=== PATIENT | female | born 1955 | race Caucasian/White ===

== ENCOUNTER 2016-05-18 16:40 | Inpatient (IN) | payer OTHER ==
[~2016-05-18] VITALS: Ht 149.9 cm; Wt 65.3 kg
[2016-05-18] MEDS ORDERED: SOD CHLORIDE 0.9% 1,000 ML IV STA (17:07)
[2016-05-18] MEDS ORDERED: ONDANSETRON 4 MG INJ IV STA (17:07)
[2016-05-18] MEDS ORDERED: morphine 4 MG/ML VIAL IV STA (17:07)
[2016-05-18] MEDS ORDERED: NORT10CA2 PO (17:45)
[2016-05-18] MEDS ORDERED: ASPI81TA3 PO (17:45)
[2016-05-18] MEDS ORDERED: CARV6.2579 PO (17:48)
[2016-05-18] MEDS ORDERED: ERGO2000 PO (17:49)
[2016-05-18] MEDS ORDERED: CLOP75TA27 PO (17:49)
[2016-05-18] MEDS ORDERED: SENN-53 PO (17:50)
[2016-05-18] MEDS ORDERED: DOCU-159 PO (17:50)
[2016-05-18] MEDS ORDERED: CYAN500T46 PO (17:50)
[2016-05-18] MEDS ORDERED: FURO20TA3 PO (17:51)
[2016-05-18] MEDS ORDERED: FER325 PO (17:51)
[2016-05-18] MEDS ORDERED: GABA-528 PO ×2 (17:51→17:52)
[2016-05-18] MEDS ORDERED: LOSA25TA5 PO (17:52)
[2016-05-18] MEDS ORDERED: PANT40TA4 PO (17:52)
[2016-05-18 18:51] LABS: BASOPHILS % 0.3 % (0.0-2.0); EOSINOPHILS # 0.3 10^3/ul (0.0-0.5); EOSINOPHILS % 8.9 % (0.0-7.0); HEMATOCRIT 24.6 % (37.0-47.0); HEMOGLOBIN 8.5 g/dl (12.0-16.0); LYMPHOCYTES # 0.8 10^3/ul (0.8-2.9); LYMPHOCYTES % 22.5 % (15.0-51.0); MEAN CORPUSCULAR HEMOGLOBIN 31.6 pg (29.0-33.0); MEAN CORPUSCULAR HGB CONC 34.6 g/dl (32.0-37.0); MEAN CORPUSCULAR VOLUME 91.4 fl (82.0-101.0); MEAN PLATELET VOLUME 9.4 fl (7.4-10.4); MONOCYTE # 0.4 10^3/ul (0.3-0.9); MONOCYTES % 11.2 % (0.0-11.0); NEUTROPHIL # 1.9 10^3/ul (1.6-7.5); NEUTROPHILS % 57.1 % (39.0-77.0); PLATELET COUNT 189 10^3/UL (140-440); RED BLOOD COUNT 2.69 10^6/ul (4.20-5.40); UNCORRECTED WBC 3.4 10^3/ul (4.8-10.8); WHITE BLOOD COUNT 3.4 10^3/ul (4.8-10.8)
[2016-05-18 18:52] LABS: CONDITION 1; LH ANALYZER COMMENTS 1
[2016-05-18 19:08] LABS: ALBUMIN 3.4 g/dl (3.3-4.9); CHLORIDE 106 mmol/L (97-110)
[2016-05-18 19:09] LABS: POTASSIUM 4.2 mmol/L (3.5-5.1); SODIUM 142 mmol/L (135-144)
[2016-05-18 19:11] LABS: ALANINE AMINOTRANSFERASE 18 IU/L (13-69); ALBUMIN/GLOBULIN RATIO 0.94; ALKALINE PHOSPHATASE 56 IU/L (42-121); ANION GAP 18 (8-16); ASPARTATE AMINO TRANSFERASE 16 IU/L (15-46); BLOOD UREA NITROGEN 24 mg/dl (7-20); CARBON DIOXIDE 22 mmol/L (21-31); CREATININE 0.91 mg/dl (0.44-1.00)
[2016-05-18 19:12] LABS: CALCIUM 8.3 mg/dl (8.4-10.2); GLUCOSE 114 mg/dl (70-220)
[2016-05-18 19:27] LABS: TROPONIN-I < 0.012 ng/ml (0.00-0.12)
[2016-05-18] MEDS ORDERED: SOD CHLORIDE 0.9% 1,000 ML IV ONE (20:30)
[2016-05-18 20:42] LABS: ADD UMIC YES; URINE BILIRUBIN (Dip) NEGATIVE (NEGATIVE); URINE BLOOD (Dip) NEGATIVE (NEGATIVE); URINE COLOR LT. YELLOW (YELLOW); URINE GLUCOSE (Dip) NEGATIVE (NEGATIVE); URINE KETONES (Dip) NEGATIVE (NEGATIVE); URINE LEUKOCYTE ESTERASE (Dip) 1+ (NEGATIVE); URINE NITRITE (Dip) NEGATIVE (NEGATIVE); URINE TOTAL PROTEIN (Dip) NEGATIVE (NEGATIVE); URINE UROBILINOGEN (Dip) 0.2 E.U./dL (0.1-1.0)
[2016-05-18 20:50] LABS: BACTERIA,URINE FEW; SQUAMOUS EPITHELIAL CELL,UR MODERATE; URINE RBCS NONE SEEN /HPF (0)
--- NOTE | 2016-05-18 21:43 | RADRPT ---
AMENDMENT: 05/18/2016 9:50:07 PM Melchor Giang M.D. Please disregard the initial report. It is of this date. This is the actual report. Procedure: CT abdomen pelvis without contrast. Clinical indication: Left-sided abdominal pain. Technique: CT of the abdomen pelvis without contrast was performed and is reconstructed 2.5 mm cont iguous axial intervals from the dome of the diaphragm to the inferior pubic rami. The patient was s canned without intravenous or oral contrast. Sagittal and coronal reformatted images were obtained. Calculated radiation dose measures 7[address] D I measures 14 mCi. Comparison: None. Findings: Lung bases are clear of any infiltrate or mass. There is no effusion. The liver, spleen and pancreas are unremarkable. There are gallstones. No adrenal mass is visualiz ed. Kidneys are of normal size and contour. No hydronephrosis, calculus or masses seen. Ureters a re of normal course and caliber with no stone. No bladder masses stone is present. The uterus has been removed. There is no adnexal mass. Calcification is seen in the aorta and iliac arteries with no aneurysm. No adenopathy is present. No bowel mass is visualized. There is a long segment of m oderately distended mid and distal small bowel extending to the ileocecal valve. There is fecalizat ion of this segment of small bowel. The ileocecal valve appears to be widely patent. The appendix is normal. No phlegmon, ascites or pneumoperitoneum is present. The osseous structures are intact. Impression: Long segment moderately distended small bowel with a widely patent ileocecal valve. No evidence of urolithiasis, obstructive uropathy, appendicitis or diverticulitis. Cholelithiasis. Post hysterectomy. PROCEDURE: CT abdomen and pelvis without contrast. CLINICAL INDICATION: Left-sided abdominal pain TECHNIQUE: CT scan of the abdomen and pelvis without contrast was performed and is reconstructed a t 2.5 mm contiguous axial intervals from the dome of the diaphragm to the inferior pubic rami.. The patient was scanned without intravenous contrast. Sagittal and coronal reformatted images were obt ained from the axial source images. The calculated radiation dose measures 753 mGy centimeters. The CTDI measures 14 mGy. COMPARISON: Pain, contour placed in the bowel through 1 of the chest and the other in the is on th e is a moderate FINDINGS: The lung bases are clear of any infiltrate or nodule. No effusion is seen. The liver is of normal size, contour and attenuation with no mass or ductal dilatation. No gallston es are visualized. No splenic, adrenal or pancreatic abnormalities present. Kidneys are of normal size and contour. No hydronephrosis, calculus or masses seen. Ureters are o f normal course and caliber with no stone. No bladder mass or stone is present. There is no aneurysm. No adenopathy is present. No bowel mass or obstruction is present. The appendix is normal. No phlegmon, ascites or pneumop eritoneum is visualized. The osseous structures are intact. IMPRESSION: No evidence of urolithiasis, obstructive uropathy, diverticulitis or appendicitis. .Melchor Giang MD, MD Date Time Electronically viewed and signed by .Melchor Giang MD, on 05/18/2016 21:50 .A/
--- NOTE | 2016-05-18 23:23 | ERA ---
ER Documentation Chief Complaint Date/Time DATE: 05/18/16 TIME: 23:17 Chief Complaint RECTAL BLEEDING AND DIARRHEA FOR 3 -4 DAYS. GEN WEAKNESS AND FATIGUE. HPI This 60 yeal old female presents for nausea diarrhea for 3 times days as well as rectal bleeding. States that she is very weak and feels very tired. Denies any chest pain or shortness of breath. Denies any fevers and chills. States that she has had very low hemoglobin before according transfusion. Stated that her physicians and wanted to do a colonoscopy and EGD but had postponed it because she was still on blood thinners from stent placement 6 months ago. ROS All systems reviewed and are negative except as per history of present illness. Medications Home Meds Reported Medications Pantoprazole* (Pantoprazole*) 40 Mg Tablet.dr, 40 MG PO BID, TAB 05/18/16 Losartan Potassium* (Losartan Potassium*) 25 Mg Tablet, 25 MG PO DAILY, TAB 05/18/16 Gabapentin* (Gabapentin*) 800 Mg Tablet, 800 MG PO TID, #90 TAB 05/18/16 Furosemide* (Furosemide*) 20 Mg Tablet, 20 MG PO DAILY, #60 TAB 05/18/16 Ferrous Sulfate* (Ferrous Sulfate*) 325 Mg Tabec, 325 MG PO TID, TAB 05/18/16 Sennosides* (Senna Lax*) 8.6 Mg Tablet, 1 TAB PO BID, TAB 05/18/16 Docusate Sodium* (Docusate Sodium*) 100 Mg Capsule, 100 MG PO BID, #60 CAP 05/18/16 Cyanocobalamin* (Vitamin B12*) 500 Mcg Tab, 500 MCG PO DAILY, TAB 05/18/16 Clopidogrel Bisulfate (Clopidogrel) 75 Mg Tablet, 75 MG PO DAILY, #30 TAB 05/18/16 Ergocalciferol (Vitamin D2) (VITAMIN D2) 2,000 Unit Tablet, 2000 UNIT PO DAILY, TAB 05/18/16 Carvedilol* (Carvedilol*) 6.25 Mg Tablet, 6.25 MG PO BID, #60 TAB 05/18/16 Nortriptyline Hcl* (Nortriptyline Hcl*) 10 Mg Capsule, 10 MG PO HS, CAP 05/18/16 Aspirin* (Aspirin* Chew) 81 Mg Tab.chew, 81 MG PO DAILY, TAB.CHEW 05/18/16 Discontinued Reported Medications Gabapentin* (Gabapentin*) 800 Mg Tablet, 800 MG PO TID, #90 TAB 05/18/16 Allergies Allergies: Coded Allergies: Sulfa (Sulfonamide Antibiotics) (Verified Allergy, Unknown, SWELLING CAN' T BREATH, 05/18/16) PMhx/Soc History of Surgery: No Anesthesia Reaction: No Hx Neurological Disorder: No Hx Respiratory Disorders: No Hx Cardiac Disorders: Yes (IA W/ STENT, HTN) Hx Psychiatric Problems: No Hx Miscellaneous Medical Probl: Yes (DM, C-DIFF) Hx Alcohol Use: No Hx Substance Use: No Hx Tobacco Use: No Smoking Status: Never smoker Physical Exam Vitals Vital Signs Date Time Temp Pulse Resp B/P Pulse Ox O2 Delivery O2 Flow Rate FiO2 05/18/16 16:50 99.2 79 20 148/72 98 Physical Exam Const: [] Appears ill Head: Atraumatic Eyes: Normal Conjunctiva ENT: Normal External Ears, Nose and Mouth. Neck: Full range of motion..~ No meningismus. Resp: Clear to auscultation bilaterally Cardio: Regular tachycardia, no murmurs Abd: Soft, tender swollen left side of abdomen with no guarding or rebound,, non distended. Normal bowel sounds Skin: No petechiae or rashes Back: No midline or flank tenderness Ext: No cyanosis, or edema Neur: Awake and alert and oriented 3, no focal deficits Psych: Normal Mood and Affect Result Diagram: 05/18/16182905/18/161829 Results 24 hrs Laboratory Tests Test 05/18/16 18:30 05/18/16 20:15 Alanine Aminotransferase (ALT/SGPT) 18IU/L Albumin 3.4g/dl Albumin/Globulin Ratio 0.94 Alkaline Phosphatase 56IU/L Anion Gap 18 Aspartate Amino Transf (AST/SGOT) 16IU/L Basophils # 0.010^3/ul Basophils % 0.3% Blood Morphology Comment Blood Urea Nitrogen 24mg/dl Calcium Level 8.3mg/dl Carbon Dioxide Level 22mmol/L Chloride Level 106mmol/L Creatinine 0.91mg/dl Direct Bilirubin 0.00mg/dl Eosinophils # 0.310^3/ul Eosinophils % 8.9% Globulin 3.60g/dl Glucose Level 114mg/dl Hematocrit 24.6% Hemoglobin 8.5g/dl Indirect Bilirubin 0.0mg/dl Lactic Acid Level 1.7mmol/L Lipase 128U/L Lymphocytes # 0.810^3/ul Lymphocytes % 22.5% Mean Corpuscular Hemoglobin 31.6pg Mean Corpuscular Hemoglobin Concent 34.6g/dl Mean Corpuscular Volume 91.4fl Mean Platelet Volume 9.4fl Monocytes # 0.410^3/ul Monocytes % 11.2% Neutrophils # 1.910^3/ul Neutrophils % 57.1% Nucleated Red Blood Cells # 0.010^3/ul Nucleated Red Blood Cells % 0.0/100WBC Platelet Count 17502^3/UL Potassium Level 4.2mmol/L Red Blood Count 2.6910^6/ul Red Cell Distribution Width 15.0% Sodium Level 142mmol/L Total Bilirubin 0.0mg/dl Total Protein 7.0g/dl Troponin I < 0.012ng/ml White Blood Count 3.410^3/ul Urine Bacteria FEW Urine Bilirubin NEGATIVE Urine Clarity CLEAR Urine Color LT. YELLOW Urine Glucose NEGATIVE% Urine Hemoglobin NEGATIVE Urine Ketones NEGATIVE Urine Leukocyte Esterase 1+ Urine Microscopic RBC NONE SEEN/HPF Urine Microscopic WBC 5-10/HPF Urine Nitrite NEGATIVE Urine Specific Luke 1.010 Urine Squamous Epithelial Cells MODERATE Urine Total Protein NEGATIVE Urine Urobilinogen 0.2 E.U./dL Urine pH 5.5 Current Medications Medications (Trade) Dose Ordered Sig/Kanika Route PRN Reason Start Time Stop Time Status Last Admin Dose Admin Sodium Chloride (NS) 1,000 ml @ 1,000 mls/hr Q1H STAT IV 05/18/16 17:07 05/18/16 18:06 DC 05/18/16 18:30 Morphine Sulfate (morphine) 4 mg ONCE STAT IV 05/18/16 17:07 05/18/16 17:08 DC 05/18/16 18:29 Ondansetron HCl 4 mg 4 mg ONCE STAT IV 05/18/16 17:07 05/18/16 17:08 DC 05/18/16 18:29 Sodium Chloride (NS) 1,000 ml @ 1,000 mls/hr Q1H ONCE IV 05/18/16 20:30 05/18/16 21:29 DC 05/18/16 21:18 Ondansetron HCl (Zofran Inj) 4 mg BRIDGE ORDER PRN IV NAUSEA AND/OR VOMITING 05/18/16 23:30 05/19/16 23:29 Acetaminophen (Tylenol Tab) 650 mg ER BRIDGE PRN PO MILD PAIN/FEVER 05/18/16 23:30 05/19/16 23:29 Procedures/MDM 60-year-old female with acute GI bleeding. Hemoglobin is 8.5 and patient does feel very weak and does not want to walk because she feels so tired. I believe these are symptoms of her anemia. There are no signs of acute infection. No signs of cardiac ischemia or acute intra-abdominal process. She was given 4 mg of morphine as well as 4 medical Zofran and hydrated with 2 L of IV fluid. Holding off on transfusing for now but we will trend her H&H now that she is hydrated hemoglobin may be lower. No signs of intra-abdominal surgical emergency. I spoke with Dr. Ingram who will be admitting the patient to [facility] for a possible GI workup. I did give her 20 mg of Pepcid IV. EKG interpretation: Normal sinus rhythm rate of 68, left axis deviation, anteroseptal Q waves, no ST or T-wave changes concerning for acute ischemia Cardio monitor interpretation: Initial sinus tachycardia followed by normal sinus rhythm with no other arrhythmias CT abdomen and pelvis interpretation: No acute process, I see no free air , no obstruction, no abnormal fat stranding, no fractures Departure Diagnosis: Primary Impression: Symptomatic anemia Additional Impressions: GI bleeding Acute abdominal pain NAYE BANKS DO May 18, 2016 23:23
[2016-05-18 23:30] VITALS: TEMP 97.9
[2016-05-18] MEDS ORDERED: ACETAMINOPHEN 325 MG TAB PO PRN (23:30)
[2016-05-18] MEDS ORDERED: BISACODYL (EC) 5 MG TAB PO PRN (23:30)
[2016-05-18] MEDS ORDERED: MAGNESIUM HYDROXIDE 30ML CUP PO PRN (23:30)
[2016-05-18] MEDS ORDERED: FAMOTIDINE 20 MG INJ IV ONE (23:30)
[2016-05-18] MEDS ORDERED: NACL 0.9% 3 ML SYG IV SCH (23:30)
[2016-05-18] MEDS ORDERED: ONDANSETRON 4 MG INJ IV PRN ×2 (23:30)
[2016-05-18] MEDS ORDERED: DOCUSATE SODIUM 100 MG CAP PO PRN (23:30)
[2016-05-19 00:13] LABS: HEMATOCRIT 25.7 % (37.0-47.0); HEMOGLOBIN 8.9 g/dl (12.0-16.0)
[2016-05-19 00:46] VITALS: BP 154/68; RESP 16
[2016-05-19 00:57] VITALS: Ht 149.9 cm; Wt 65.3 kg
[2016-05-19] MEDS ORDERED: GLUCAGON 1 MG INJ IM PRN ×2 (02:00→03:00)
[2016-05-19] MEDS ORDERED: DEXTROSE 50% 50 ML SYRINGE IV PRN ×4 (02:00→03:00)
[2016-05-19] MEDS ORDERED: GLUCOSE GEL 15 GRAM TUBE PO PRN ×4 (02:00→03:00)
[2016-05-19] MEDS ORDERED: ACCUCHECK XX SCH ×2 (02:00)
[2016-05-19] MEDS ORDERED: GLUCOSE GEL 15 GRAM TUBE BUCCAL PRN ×2 (02:00→03:00)
[2016-05-19] MEDS: ACETAMINOPHEN 325 MG TAB PO PRN ×2 (03:05→19:03)
[2016-05-19] MEDS: FUROSEMIDE 20 MG TAB PO SCH (05:35)
[2016-05-19] MEDS: PANTOPRAZOLE (EC) 40 MG TAB PO SCH ×2 (05:35→17:36)
[2016-05-19] MEDS ORDERED: PANTOPRAZOLE 40 MG INJ IV SCH (06:00)
[2016-05-19 07:46] VITALS: BP 113/56; RESP 16
[2016-05-19] MEDS: INSULIN ASPART [NOVOLOG] 3 ML PEN SC SCH ×4 (08:00→21:00)
[2016-05-19] MEDS ORDERED: INSULIN ASPART [NOVOLOG] 3 ML PEN SC SCH (08:00)
[2016-05-19] MEDS: LOSARTAN 25 MG TAB PO SCH (08:32)
[2016-05-19] MEDS: CYANOCOBALAMIN 500 MCG TAB PO SCH (08:32)
[2016-05-19] MEDS: FERROUS SULFATE (EC) 325 MG TAB PO SCH ×3 (08:32→22:32)
[2016-05-19] MEDS: CLOPIDOGREL 75 MG TAB PO SCH ×2 (08:33→09:00)
[2016-05-19] MEDS: ASPIRIN 81 MG TAB PO SCH (08:33)
[2016-05-19] MEDS: GABAPENTIN 400 MG CAP PO SCH ×3 (08:33→22:28)
[2016-05-19] MEDS: DOCUSATE SODIUM 100 MG CAP PO SCH ×2 (08:33→22:29)
[2016-05-19] MEDS: SENNA TAB PO SCH ×2 (08:33→22:29)
[2016-05-19 09:21] LABS: BASOPHILS % 0.5 % (0.0-2.0); EOSINOPHILS # 0.3 10^3/ul (0.0-0.5); HEMATOCRIT 24.2 % (37.0-47.0); HEMOGLOBIN 8.4 g/dl (12.0-16.0); LYMPHOCYTES # 0.7 10^3/ul (0.8-2.9); LYMPHOCYTES % 23.3 % (15.0-51.0); MEAN CORPUSCULAR HEMOGLOBIN 31.9 pg (29.0-33.0); MEAN CORPUSCULAR HGB CONC 34.7 g/dl (32.0-37.0); MEAN CORPUSCULAR VOLUME 91.8 fl (82.0-101.0); MEAN PLATELET VOLUME 8.6 fl (7.4-10.4); MONOCYTE # 0.3 10^3/ul (0.3-0.9); MONOCYTES % 10.6 % (0.0-11.0); NEUTROPHIL # 1.7 10^3/ul (1.6-7.5); NEUTROPHILS % 54.6 % (39.0-77.0); PLATELET COUNT 180 10^3/UL (140-440); RED BLOOD COUNT 2.64 10^6/ul (4.20-5.40); RED CELL DISTRIBUTION WIDTH 14.8 % (11.5-14.5); UNCORRECTED WBC 3.1 10^3/ul (4.8-10.8); WHITE BLOOD COUNT 3.1 10^3/ul (4.8-10.8)
[2016-05-19 09:36] LABS: CONDITION 1; LH ANALYZER COMMENTS 1
[2016-05-19 09:45] LABS: POTASSIUM 4.6 mmol/L (3.5-5.1)
[2016-05-19 09:47] LABS: CREATININE 0.89 mg/dl (0.44-1.00)
[2016-05-19 09:48] LABS: ALBUMIN/GLOBULIN RATIO 0.9; CALCIUM 7.9 mg/dl (8.4-10.2); TOTAL PROTEIN 6.3 g/dl (6.1-8.1)
[2016-05-19] MEDS ORDERED: SOD CHLORIDE 0.9% 250 ML IV* ONE (10:23)
[2016-05-19] MEDS ORDERED: DIPHENHYDRAMINE 25 MG CAP PO SCH (15:00)
[2016-05-19] MEDS ORDERED: ACETAMINOPHEN 500 MG TAB PO SCH (15:00)
--- NOTE | 2016-05-19 15:28 | QN ---
Documentation Comment [id number] SAMMY XIAO MD May 19, 2016 15:28
--- NOTE | 2016-05-19 17:29 | HP ---
DATE OF ADMISSION: 05/18/2016 HISTORY OF PRESENT ILLNESS: This is a 60-year-old female with a history of scleroderma presented to this hospital complaining of bleeding per rectum. The patient was noted to have a blood pressure o f 113/56. WBC 3.1, hematocrit 24.2, platelet count of 118. The patient's sodium 141, potassium 4.0 . The patient with history of CAD, SC and blood thinner because the ____stent placement. The patie nt had a similar episode in the past and had colonoscopy done and cauterization per patient. PAST MEDICAL HISTORY: Anemia, CAD. The patient has a history of scleroderma and history of pernici ous anemia. ALLERGIES: SULFA. SOCIAL HISTORY: Negative. FAMILY HISTORY: Negative. MEDICATION: 1. Aspirin. 2. Coreg. 3. Plavix. 4. B12. 5. Docusate sodium. 6. Ergocalciferol. 7. Lasix. 8. Gabapentin. 9. Losartan. 10. Protonix. 11. Nortriptyline. 12. Tylenol. 13. ____. 14. Aspirin. 15. Coreg. 16. Plavix. 17. Cyanocobalamin. 18. Docusate sodium. 19. Iron sulfate. 20. Senna. 21. Insulin. 22. Furosemide. REVIEW OF SYSTEMS: HEENT: Unremarkable. RESPIRATORY: Unremarkable. CARDIOVASCULAR: Unremarkable. ABDOMEN: As mentioned above. EXTREMITIES: Unremarkable. GENITOURINARY: Unremarkable. MUSCULOSKELETAL: Unremarkable. PHYSICAL EXAMINATION: GENERAL: The patient is awake and alert. VITAL SIGNS: Pulse 70, blood pressure 154/68. HEAD: Atraumatic, normocephalic. Pupils equal, reactive to light. NECK: Supple. No JVD. LUNGS: Clear. CARDIOVASCULAR: S1, S2 are normal. ABDOMEN: Soft, nontender. Bowel sounds positive. No palpable mass or hepatosplenomegaly. No guar ding, rebound tenderness. EXTREMITIES: There is no cyanosis, clubbing, or edema. CENTRAL NERVOUS SYSTEM: The patient is awake, alert, no focal deficit. SKIN: Signs of scleroderma noted in the patient's left upper extremity and the patient has chronic skin lesion noted. LABORATORY DATA: Sodium 141, potassium 4.6, hematocrit 24.2. IMPRESSION: 1. Patient has gastrointestinal bleed. 2. History of coronary artery disease, stent placement recently, hypertension 3. Anemia. 4. Hyponatremia. 5. Neutropenia. PLAN: To keep her n.p.o., intravenous fluid, proton pump inhibitor, blood transfusion as needed. G I consultation, ____ has been called. Orders were done for home medications which will be chuy nued for now. Dictated By: SAMMY XIAO MD BS/NTS Conf#: [id number] DID#: [id number]
--- NOTE | 2016-05-19 17:54 | CONS ---
DATE OF ADMISSION: 05/18/2016 DATE OF CONSULTATION: REQUESTING PHYSICIAN: Dr. Tommy Xiao. HISTORY OF PRESENT ILLNESS: Thank you for asking me to evaluate the patient who is a 60-year-old f emale with a recent myocardial infarction almost 6 to 7 months ago, was on aspirin and Plavix, comes to the emergency room complaining of rectal bleeding and profound weakness. In the ER, the patient was evaluated and found to have a low hemoglobin, so was admitted for further management and treatm ent. Indeed patient had seen cushion worker as an outpatient and the cushion worker recomme nded colonoscopy and EGD, but since she was on aspirin and Plavix, this was not done. She denies of any chest pain. 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 REVIEW OF SYSTEMS: Otherwise negative. MEDICATIONS: All reviewed. She is on: 1. Pantoprazole. 2. Losartan. 3. Gabapentin. 4. Lasix. 5. ____. 6. Senna. 7. Docusate. 8. B12. 9. Plavix. 10. Carvedilol. 11. Nortriptyline. 12. Aspirin. ALLERGIES: SULFA. PAST MEDICAL HISTORY: Diabetes mellitus, history of C. difficile colitis, and hypertension. SOCIAL HISTORY: Does not smoke or drink. PHYSICAL EXAMINATION GENERAL: Appears weak. VITAL SIGNS: Stable. HEENT: Unremarkable. NECK: Supple. No thyromegaly, no lymphadenopathy. CARDIOVASCULAR: No murmur, gallop, or click. LUNGS: Clear. ABDOMEN: Benign. EXTREMITIES: No edema. CENTRAL NERVOUS SYSTEM: Grossly within normal limits. LABORATORY DATA: Hematocrit 25.7, now it is 24.2, normochromic normocytic pattern. CMP Grossly wit hin normal limits. CAT scan of the abdomen and pelvis was also normal. IMPRESSION: 1. Anemia. 2. Rectal bleeding. 3. Diabetes mellitus. 4. Hypertension. 5. Status post coronary artery stent 6 to 7 months ago for myocardial infarction. PLAN: At this point, is to monitor H and H. Continue PPI. Transfuse on a need basis. The patient definitely needs EGD and colonoscopy to find out the source of GI bleeding. Will get a cardiology clearance. I will discuss with ____. Dictated By: ZARA PASCUAL/KAROL Conf#: [id number] DID#: [id number] CC: ZARA DIOR MD; TOMMY XIAO MD;*[facility]*
[2016-05-19 20:00] VITALS: BP 133/60; PULSE 57
[2016-05-19 20:43] VITALS: BP 133/60; RESP 16
[2016-05-19] MEDS: NORTRIPTYLINE 10 MG CAP PO SCH (22:28)
[2016-05-20] MEDS: ACETAMINOPHEN 325 MG TAB PO PRN (01:55)
[2016-05-20] MEDS: ACCUCHECK XX SCH (01:59)
[2016-05-20] MEDS ORDERED: ACCUCHECK XX SCH (02:00)
[2016-05-20] MEDS: FUROSEMIDE 20 MG TAB PO SCH (05:31)
[2016-05-20] MEDS: PANTOPRAZOLE (EC) 40 MG TAB PO SCH ×2 (05:31→17:17)
[2016-05-20 06:09] LABS: ALBUMIN 3.4 g/dl (3.3-4.9)
[2016-05-20 06:10] LABS: POTASSIUM 4.6 mmol/L (3.5-5.1)
[2016-05-20 06:12] LABS: ALBUMIN/GLOBULIN RATIO 1.06; CREATININE 0.91 mg/dl (0.44-1.00); TOTAL PROTEIN 6.6 g/dl (6.1-8.1)
[2016-05-20 06:13] LABS: CALCIUM 8.2 mg/dl (8.4-10.2)
[2016-05-20 07:02] LABS: BASOPHILS % 0.7 % (0.0-2.0); EOSINOPHILS # 0.4 10^3/ul (0.0-0.5); EOSINOPHILS % 9.3 % (0.0-7.0); HEMATOCRIT 31.5 % (37.0-47.0); HEMOGLOBIN 10.6 g/dl (12.0-16.0); LYMPHOCYTES # 0.9 10^3/ul (0.8-2.9); LYMPHOCYTES % 23.9 % (15.0-51.0); MEAN CORPUSCULAR HEMOGLOBIN 31.5 pg (29.0-33.0); MEAN CORPUSCULAR HGB CONC 33.7 g/dl (32.0-37.0); MEAN CORPUSCULAR VOLUME 93.5 fl (82.0-101.0); MEAN PLATELET VOLUME 9.2 fl (7.4-10.4); MONOCYTE # 0.4 10^3/ul (0.3-0.9); MONOCYTES % 9.8 % (0.0-11.0); NEUTROPHIL # 2.2 10^3/ul (1.6-7.5); NEUTROPHILS % 56.3 % (39.0-77.0); PLATELET COUNT 177 10^3/UL (140-440); RED BLOOD COUNT 3.37 10^6/ul (4.20-5.40); RED CELL DISTRIBUTION WIDTH 14.9 % (11.5-14.5); UNCORRECTED WBC 3.9 10^3/ul (4.8-10.8); WHITE BLOOD COUNT 3.9 10^3/ul (4.8-10.8)
[2016-05-20 07:28] LABS: CONDITION 1; LH ANALYZER COMMENTS 1
[2016-05-20] MEDS: INSULIN ASPART [NOVOLOG] 3 ML PEN SC SCH ×4 (08:00→21:00)
[2016-05-20 08:22] VITALS: BP 129/58; RESP 18
[2016-05-20] MEDS: DOCUSATE SODIUM 100 MG CAP PO SCH ×2 (08:57→21:21)
[2016-05-20] MEDS: CYANOCOBALAMIN 500 MCG TAB PO SCH (08:57)
[2016-05-20] MEDS: FERROUS SULFATE (EC) 325 MG TAB PO SCH ×3 (08:57→21:21)
[2016-05-20] MEDS: GABAPENTIN 400 MG CAP PO SCH ×3 (08:57→21:21)
[2016-05-20] MEDS: SENNA TAB PO SCH ×2 (08:57→21:21)
[2016-05-20] MEDS: ASPIRIN 81 MG TAB PO SCH (08:57)
[2016-05-20] MEDS: LOSARTAN 25 MG TAB PO SCH (08:58)
[2016-05-20] MEDS: CLOPIDOGREL 75 MG TAB PO SCH (08:58)
--- NOTE | 2016-05-20 17:21 | PN ---
Date/Time of Note Date/Time of Note DATE: 05/20/16 TIME: 17:21 Assessment/Plan VTE Prophylaxis VTE Prophylaxis Intervention: other Lines/Catheters IV [facility] [place] Urinary Cath still in place: No Assessment/Plan Chief Complaint/Hosp Course IMPRESSION: 1. Patient has gastrointestinal bleed. 2. History of coronary artery disease, stent placement recently, hypertension 3. Anemia. 4. Hyponatremia. 5. Neutropenia. PLAN PER GI Problems: Subjective 24 Hr Interval Summary Cardiovascular: no complaints Gastrointestinal: no complaints Exam/Review of Systems Vital Signs Vitals Vital Signs Date Time Temp Pulse Resp B/P Pulse Ox O2 Delivery O2 Flow Rate FiO2 05/20/16 08:22 98.4 62 18 129/58 97 05/18/16 23:30 Room Air Intake and Output 05/19/16 05/19/16 05/20/16 15:00 23:00 07:00 Intake Total 1150 ml 600 ml Balance 1150 ml 600 ml Exam Neck: supple Respiratory: clear to auscultation Cardiovascular: regular rate and rhythm Gastrointestinal: soft Musculoskeletal: nl extremities to inspection Extremities: normal pulses Results Result Diagram: 05/20/16 0535 05/20/16 0517 Results 24 hrs Laboratory Tests Test 05/19/16 22:38 05/20/16 01:52 05/20/16 05:17 05/20/16 05:35 Bedside Glucose 89 117 Alanine Aminotransferase (ALT/SGPT) 19 Albumin 3.4 Albumin/Globulin Ratio 1.06 Alkaline Phosphatase 56 Anion Gap 17 H Aspartate Amino Transf (AST/SGOT) 18 Blood Urea Nitrogen 20 Calcium Level 8.2 L Carbon Dioxide Level 24 Chloride Level 107 Creatinine 0.91 Direct Bilirubin 0.00 Globulin 3.20 Glucose Level 89 Indirect Bilirubin 0.0 Potassium Level 4.6 Sodium Level 143 Total Bilirubin 0.0 L Total Protein 6.6 Basophils # 0.0 Basophils % 0.7 Blood Morphology Comment Eosinophils # 0.4 Eosinophils % 9.3 H Hematocrit 31.5 #L Hemoglobin 10.6 #L Lymphocytes # 0.9 Lymphocytes % 23.9 Mean Corpuscular Hemoglobin 31.5 Mean Corpuscular Hemoglobin Concent 33.7 Mean Corpuscular Volume 93.5 Mean Platelet Volume 9.2 Monocytes # 0.4 Monocytes % 9.8 Neutrophils # 2.2 Neutrophils % 56.3 Nucleated Red Blood Cells # 0.0 Nucleated Red Blood Cells % 0.0 Platelet Count 177 Red Blood Count 3.37 #L Red Cell Distribution Width 14.9 H White Blood Count 3.9 #L Test 05/20/16 08:56 05/20/16 11:42 Bedside Glucose 84 140 Medications Medications Current Medications Aspirin (Aspirin) 81 mg DAILY PO Last administered on 05/20/16 08:57; Admin Dose 81 MG; Start 05/19/16 at 09:00 Carvedilol (Coreg) 6.25 mg BID PO Last administered on 05/20/16 08:58; Admin Dose 6.25 MG; Start 05/19/16 at 09:00 Clopidogrel Bisulfate (plaVIX) 75 mg DAILY PO Last administered on 05/20/16 08 :58; Admin Dose 75 MG; Start 05/19/16 at 09:00 Cyanocobalamin (Vitamin B12) 500 mcg DAILY PO Last administered on 05/20/16 08 :57; Admin Dose 500 MCG; Start 05/19/16 at 09:00 Docusate Sodium (Colace) 100 mg BID PO Last administered on 05/20/16 08:57; Admin Dose 100 MG; Start 05/19/16 at 09:00 Ferrous Sulfate (Ferrous Sulfate (Ec)) 325 mg TID PO Last administered on 13:23; Admin Dose 325 MG; Start 05/19/16 at 09:00 Furosemide (Lasix) 20 mg DAILY@06 PO Last administered on 05/20/16 05:31; Admin Dose 20 MG; Start 05/19/16 at 06:00 Gabapentin (Neurontin) 800 mg TID PO Last administered on 05/20/16 13:23; Admin Dose 800 MG; Start 05/19/16 at 09:00 Losartan Potassium (Cozaar) 25 mg DAILY PO Last administered on 05/20/16 08:58 ; Admin Dose 25 MG; Start 05/19/16 at 09:00 Nortriptyline HCl (Aventyl) 10 mg HS PO Last administered on 05/19/16 22:28; Admin Dose 10 MG; Start 05/19/16 at 21:00 Pantoprazole (Protonix Tab) 40 mg BID@,18 PO Last administered on 05/20/16 17:17; Admin Dose 40 MG; Start 05/19/16 at 06:00 Senna (Senokot) 1 tab BID PO Last administered on 05/20/16 08:57; Admin Dose 1 TAB; Start 05/19/16 at 09:00 Ondansetron HCl (Zofran Inj) 4 mg Q6H PRN IV NAUSEA AND/OR VOMITING; Start at 23:30 Acetaminophen (Tylenol Tab) 650 mg Q6H PRN PO PAIN LEVEL 1-3 OR FEVER Last administered on 05/20/16 01:55; Admin Dose 650 MG; Start 05/18/16 at 23:30 Docusate Sodium (Colace) 100 mg Q12H PRN PO CONSTIPATION; Start 05/18/16 at 23: 30 Magnesium Hydroxide (Milk Of Mag) 30 ml DAILY PRN PO CONSTIPATION; Start at 23:30 Bisacodyl (Dulcolax) 5 mg DAILY PRN PO CONSTIPATION; Start 05/18/16 at 23:30 Miscellaneous Information 1 ea NOTE XX ; Start 05/19/16 at 02:00 Glucose (Glutose) 15 gm Q15M PRN PO DECREASED GLUCOSE; Start 05/19/16 at 02:00 Glucose (Glutose) 22.5 gm Q15M PRN PO DECREASED GLUCOSE; Start 05/19/16 at 02: 00 Dextrose (D50w Syringe) 25 ml Q15M PRN IV DECREASED GLUCOSE; Start 05/19/16 at 02:00 Dextrose (D50w Syringe) 50 ml Q15M PRN IV DECREASED GLUCOSE Last administered on 05/19/16 01:57; Admin Dose 50 ML; Start 05/19/16 at 02:00 Glucagon (Glucagen) 1 mg Q15M PRN IM DECREASED GLUCOSE; Start 05/19/16 at 02:00 Glucose (Glutose) 15 gm Q15M PRN BUCCAL DECREASED GLUCOSE Last administered on 05/19/16 02:19; Admin Dose 15 GM; Start 05/19/16 at 02:00 Diagnostic Test (Pha) (Accucheck) 1 ea 02 XX ; Start 05/20/16 at 02:00 Miscellaneous Information 1 ea NOTE XX ; Start 05/19/16 at 03:00 Glucose (Glutose) 15 gm Q15M PRN PO DECREASED GLUCOSE; Start 05/19/16 at 03:00 Glucose (Glutose) 22.5 gm Q15M PRN PO DECREASED GLUCOSE; Start 05/19/16 at 03: 00 Dextrose (D50w Syringe) 25 ml Q15M PRN IV DECREASED GLUCOSE; Start 05/19/16 at 03:00 Dextrose (D50w Syringe) 50 ml Q15M PRN IV DECREASED GLUCOSE; Start 05/19/16 at 03:00 Glucagon (Glucagen) 1 mg Q15M PRN IM DECREASED GLUCOSE; Start 05/19/16 at 03:00 Glucose (Glutose) 15 gm Q15M PRN BUCCAL DECREASED GLUCOSE; Start 05/19/16 at 03 :00 Polyethylene Glycol/ Electrolytes 4000 ml 4,000 ml ONCE ONCE PO ; Start at 19:00; Stop 05/20/16 at 19:01 Dextrose/Sodium Chloride (D5-1/2ns) 1,000 ml @ 50 mls/hr Q20H IV ; Start at 00:00 SAMMY XIAO MD May 20, 2016 17:21
[2016-05-20] MEDS ORDERED: PEG/ELECTROLYTES 4L BTL PO ONE (19:00)
--- NOTE | 2016-05-20 19:55 | CONS ---
DATE OF ADMISSION: 05/18/2016 DATE OF CONSULTATION: 05/20/2016 REASON FOR CONSULTATION: History of stent, presenting with anemia, GI bleed, assess management. REQUESTING PHYSICIAN: Dr. Tommy Xiao. HISTORY OF PRESENT ILLNESS: Ms. Rios is a 60-year-old female with a history of coronary artery di sease, status post PTCA and stent placement 06/2015 at [facility] in the setting of c hest pain, NM, on aspirin and Plavix since this time, a prior GI bleed with prior endoscopy and caut erization of source of bleed, hypertension, diabetes mellitus who presented with generalized weaknes s, shortness of breath and bright red blood per rectum. Upon arrival, temperature 99.2, blood press ure 148/72, pulse 79, respiratory rate 20, saturating 98%. The patient's labs revealed a white bloo d cell count of 3.4, hemoglobin of 8.5, platelet count 189, a sodium 143, potassium 4.6, creatinine 0.9, BUN 20, AST 18, ALT 19. UA borderline. The patient underwent abdominopelvic CT revealing no e vidence of urolithiasis, obstructive uropathy, diverticulitis or appendicitis. The patient's electr ocardiogram was normal sinus rhythm, rate of 68, with left axis deviation, poor R-wave progression a cross the leads concerning for possible anteroseptal NM, inferior NM and nonspecific ST and T- wave abnormalities. The patient subsequently admitted to the floor and since admit to the floor, sh e has received a transfusion with hemoglobin going from 8.4 to 10.6. The patient denies chest pain, shortness of breath. PAST MEDICAL HISTORY: As above in HPI. MEDICATIONS CURRENTLY IN HOSPITAL: 1. Aspirin 81 mg daily. 2. Carvedilol 6.25 mg p.o. b.i.d. 3. Plavix 75 mg daily. 4. Vitamin B12. 5. Colace. 6. Ferrous sulfate 325 mg p.o. t.i.d. 7. Neurontin 800 mg t.i.d. 8. Cozaar 25 mg daily. 9. Senna. 10. Insulin sliding scale. 11. Lasix 20 mg daily. 12. Protonix 40 mg p.o. b.i.d. 13. Glucagon. ALLERGIES: SULFA. SOCIAL HISTORY: No tobacco, ETOH or illicit drug use. FAMILY HISTORY: No history of sudden cardiac or early CAD. REVIEW OF SYSTEMS: As above in HPI. CONSTITUTIONAL: No fevers, chills. PULMONARY: Shortness of breath. CARDIOVASCULAR: No current chest pain. GASTROINTESTINAL: GI bleed. GENITOURINARY: No hematuria. MUSCULOSKELETAL: Degenerative joint disease. PSYCHIATRIC: The patient denies depression. NEUROLOGIC: No documented history of CVA. ENDOCRINE: Positive diabetes mellitus. PHYSICAL EXAMINATION: VITAL SIGNS: Temperature of 98.4, blood pressure 129/58, pulse 62, respiratory rate 18, saturating 97%. GENERAL: The patient is alert, awake, no acute distress. NECK: JVP approximately 8 cm of water. CHEST: Fair movement throughout. Mildly decreased breath sounds at bases bilaterally. HEART: Regular rate and rhythm. Normal S1, S2. A I/ systolic murmur, nondisplaced PMI. ABDOMEN: Positive bowel sounds, soft. EXTREMITIES: No edema, 1+ pulses bilaterally posterior tibial. LABORATORY DATA: As above in HPI with most recently white cell count of 3.9, hemoglobin 10.6, plate let count of 177. Sodium 143, potassium 4.6, creatinine of 1.9, BUN of 20. UA negative. IMAGING STUDIES: As above in HPI. No further imaging studies for my review at this time. ELECTROCARDIOGRAM: As above in HPI. No further electrocardiograms for my review at this time. IMPRESSION: 1. Abnormal electrocardiogram, assess for acute coronary syndrome. 2. History of percutaneous transluminal coronary angioplasty and stent placement, assess management of antiplatelet agents in setting of gastrointestinal bleed. 3. Hypertension, under reasonable control. 4. History of dyslipidemia. 5. Anemia. 6. Gastrointestinal bleed. 7. Generalized weakness likely secondary to anemia. 8. Diabetes mellitus. 9. Leukopenia. RECOMMENDATIONS: 1. At this time, would check serial EKGs to assess for any significant ongoing changes and complete a rule out for myocardial infarction patient has not provoked any acute coronary syndromes in the setting of anemia with generalized weakness and EKG abnormalities. I would continue the patien t's dual antiplatelet therapy as tolerated at this time with aspirin and Plavix. 2. Continue the patient's carvedilol and losartan for control of blood pressure and heart rate. 3. Follow the patient's hemoglobin closely. 4. Ongoing evaluation of the patient's anemia and GI bleed per PMD and on GI consultation. 5. Would check serial EKGs to assess for significant ongoing changes. 6. Check a 2D echocardiogram to further assess patient's ejection fraction, wall motion and any eleazar or abnormalities and a fasting lipid panel for general risk stratification. Thank you for allowing me to take part in the care of this patient. I will continue to follow very closely with you with further recommendations to be made as the patient progresses through her [facility] clinical course. Dictated By: SUSHIL JORDAN/KAROL Conf#: [id number] DID#: [id number] CC: TOMMY XIAO MD;*EndCC*
[2016-05-20 20:47] VITALS: BP 182/77; RESP 19
[2016-05-20] MEDS: NORTRIPTYLINE 10 MG CAP PO SCH (21:21)
[2016-05-21] VITALS (11 sets, daily range): BP systolic 117–191; BP diastolic 55–76; PULSE 52–69; RESP 12–20
[2016-05-21] MEDS: DEXTROSE 5%-0.45% NACL 1,000 ML IV SCH ×2 (00:20→21:00)
[2016-05-21] MEDS: ACCUCHECK XX SCH (02:00)
[2016-05-21] MEDS: PANTOPRAZOLE (EC) 40 MG TAB PO SCH ×2 (05:50→17:45)
[2016-05-21] MEDS: FUROSEMIDE 20 MG TAB PO SCH (05:51)
[2016-05-21 06:17] LABS: BASOPHILS % 0.4 % (0.0-2.0); EOSINOPHILS # 0.4 10^3/ul (0.0-0.5); HEMATOCRIT 36.9 % (37.0-47.0); HEMOGLOBIN 12.3 g/dl (12.0-16.0); LYMPHOCYTES % 20.2 % (15.0-51.0); MEAN CORPUSCULAR HEMOGLOBIN 31.5 pg (29.0-33.0); MEAN CORPUSCULAR HGB CONC 33.2 g/dl (32.0-37.0); MEAN CORPUSCULAR VOLUME 94.9 fl (82.0-101.0); MEAN PLATELET VOLUME 9.1 fl (7.4-10.4); MONOCYTE # 0.5 10^3/ul (0.3-0.9); MONOCYTES % 9.7 % (0.0-11.0); NEUTROPHIL # 2.9 10^3/ul (1.6-7.5); NEUTROPHILS % 60.7 % (39.0-77.0); PLATELET COUNT 186 10^3/UL (140-440); RED BLOOD COUNT 3.89 10^6/ul (4.20-5.40); RED CELL DISTRIBUTION WIDTH 15.3 % (11.5-14.5); UNCORRECTED WBC 4.7 10^3/ul (4.8-10.8); WHITE BLOOD COUNT 4.7 10^3/ul (4.8-10.8)
[2016-05-21 06:39] LABS: CONDITION 1; LH ANALYZER COMMENTS 1
[2016-05-21] MEDS: INSULIN ASPART [NOVOLOG] 3 ML PEN SC SCH ×4 (08:00→21:00)
[2016-05-21] MEDS: CLOPIDOGREL 75 MG TAB PO SCH (09:00)
[2016-05-21] MEDS: SENNA TAB PO SCH ×2 (09:00→20:56)
[2016-05-21] MEDS: LOSARTAN 25 MG TAB PO SCH (09:00)
[2016-05-21] MEDS: GABAPENTIN 400 MG CAP PO SCH ×3 (09:00→20:57)
[2016-05-21] MEDS: DOCUSATE SODIUM 100 MG CAP PO SCH ×2 (09:00→20:56)
[2016-05-21] MEDS: ASPIRIN 81 MG TAB PO SCH (09:00)
[2016-05-21] MEDS: CYANOCOBALAMIN 500 MCG TAB PO SCH (09:00)
[2016-05-21] MEDS: FERROUS SULFATE (EC) 325 MG TAB PO SCH ×3 (09:00→20:56)
--- NOTE | 2016-05-21 09:29 | RADRPT ---
Vent Rate: 58 bpm RR Interval: 0 msec WI Interval: 156 msec QRS Duration: 100 msec QT Interval: 454 msec QTC Interval: 445 msec P-R-T Junction: 35 - -34 - 8 degrees Sinus bradycardia Left axis deviation Moderate voltage criteria for LVH, may be normal variant Cannot rule out Septal infarct , age undetermined Abnormal ECG Electronically Signed By: Ranjith Seo [id number]
--- NOTE | 2016-05-21 11:22 | CONS ---
Date/Time of Note Date/Time of Note DATE: 05/21/16 TIME: 11:18 Assessment/Plan Assessment/Plan Chief Complaint/Hosp Course IMPRESSION: 1. Abnormal electrocardiogram, assess for acute coronary syndrome.-trop negative x 3 2. History of percutaneous transluminal coronary angioplasty and stent placement, assess management of antiplatelet agents in setting of gastrointestinal bleed. 3. Hypertension, under reasonable control. 4. History of dyslipidemia. 5. Anemia. 6. Gastrointestinal bleed. 7. Generalized weakness likely secondary to anemia. 8. Diabetes mellitus. 9. Leukopenia. Recc: -Pnding endoscopy today -Continue asa/plavix as tolerated only as has been almost 1 year since PTCA/ stent placement 07/03 -Continue losartan/coreg -Will f/u echo -follow Hgb closely Problems: Consultation Date/Type/Reason Admit Date/Time May 18, 2016 at 23:11 Initial Consult Date 05/20/2015 Type of Consultation: Cardiology Reason for Consultation h/o stent Referring Provider: SAMMY XIAO MD Exam/Review of Systems Vital Signs Vitals Vital Signs Date Time Temp Pulse Resp B/P Pulse Ox O2 Delivery O2 Flow Rate FiO2 05/21/16 07:46 97.5 57 18 137/63 100 05/18/16 23:30 Room Air Intake and Output 05/20/16 05/20/16 05/21/16 15:00 23:00 07:00 Intake Total 1540 ml 2750 ml Output Total 200 ml Balance 1340 ml 2750 ml Exam Review of Systems: CONSTITUTIONAL: No fevers, chills. PULMONARY: No sob CARDIOVASCULAR: No chest pain/palpitations GASTROINTESTINAL: No nausea/vomiting. GENITOURINARY: No hematuria/dysuria. MUSCULOSKELETAL: No myagias/arthalgias. PSYCHIATRIC: The patient denies depression. NEUROLOGIC: mild generalized weakness Constitutional: alert, oriented Psych: no complaints ENMT: mucosa pink and moist Neck: jvd (8 cm water), supple Respiratory: clear to auscultation Cardiovascular: regular rate and rhythm Gastrointestinal: non-tender, soft Musculoskeletal: muscle tone (normal) Extremities: edema (none) Neurological: other (No focal deficits) Results Result Diagram: 05/21/16 0540 05/20/16 0517 Results 24 hrs Laboratory Tests Test 05/20/16 11:42 05/20/16 17:18 05/20/16 21:27 05/21/16 02:31 Bedside Glucose 140 95 71 88 Test 05/21/16 02:35 05/21/16 05:40 05/21/16 08:00 Troponin I 0.051 0.053 Basophils # 0.0 Basophils % 0.4 Blood Morphology Comment Cholesterol Level 131 Cholesterol/HDL Ratio 5.0 Eosinophils # 0.4 Eosinophils % 9.0 H HDL Cholesterol 26 L Hematocrit 36.9 L Hemoglobin 12.3 LDL Cholesterol, Calculated 53 Lymphocytes # 1.0 Lymphocytes % 20.2 Mean Corpuscular Hemoglobin 31.5 Mean Corpuscular Hemoglobin Concent 33.2 Mean Corpuscular Volume 94.9 Mean Platelet Volume 9.1 Monocytes # 0.5 Monocytes % 9.7 Neutrophils # 2.9 Neutrophils % 60.7 Nucleated Red Blood Cells # 0.0 Nucleated Red Blood Cells % 0.0 Platelet Count 186 Red Blood Count 3.89 L Red Cell Distribution Width 15.3 H Triglycerides Level 260 H White Blood Count 4.7 #L Bedside Glucose 80 Medications Medications Current Medications Aspirin (Aspirin) 81 mg DAILY PO Last administered on 05/20/16 08:57; Admin Dose 81 MG; Start 05/19/16 at 09:00 Carvedilol (Coreg) 6.25 mg BID PO Last administered on 05/20/16 21:22; Admin Dose 6.25 MG; Start 05/19/16 at 09:00 Clopidogrel Bisulfate (plaVIX) 75 mg DAILY PO Last administered on 05/20/16 08 :58; Admin Dose 75 MG; Start 05/19/16 at 09:00 Cyanocobalamin (Vitamin B12) 500 mcg DAILY PO Last administered on 05/20/16 08 :57; Admin Dose 500 MCG; Start 05/19/16 at 09:00 Docusate Sodium (Colace) 100 mg BID PO Last administered on 05/20/16 21:21; Admin Dose 100 MG; Start 05/19/16 at 09:00 Ferrous Sulfate (Ferrous Sulfate (Ec)) 325 mg TID PO Last administered on 21:21; Admin Dose 325 MG; Start 05/19/16 at 09:00 Furosemide (Lasix) 20 mg DAILY@06 PO Last administered on 05/21/16 05:51; Admin Dose 20 MG; Start 05/19/16 at 06:00 Gabapentin (Neurontin) 800 mg TID PO Last administered on 05/20/16 21:21; Admin Dose 800 MG; Start 05/19/16 at 09:00 Losartan Potassium (Cozaar) 25 mg DAILY PO Last administered on 05/20/16 08:58 ; Admin Dose 25 MG; Start 05/19/16 at 09:00 Nortriptyline HCl (Aventyl) 10 mg HS PO Last administered on 05/20/16 21:21; Admin Dose 10 MG; Start 05/19/16 at 21:00 Pantoprazole (Protonix Tab) 40 mg BID@,18 PO Last administered on 05/21/16 05 :50; Admin Dose 40 MG; Start 05/19/16 at 06:00 Senna (Senokot) 1 tab BID PO Last administered on 05/20/16 21:21; Admin Dose 1 TAB; Start 05/19/16 at 09:00 Ondansetron HCl (Zofran Inj) 4 mg Q6H PRN IV NAUSEA AND/OR VOMITING; Start at 23:30 Acetaminophen (Tylenol Tab) 650 mg Q6H PRN PO PAIN LEVEL 1-3 OR FEVER Last administered on 05/20/16 01:55; Admin Dose 650 MG; Start 05/18/16 at 23:30 Docusate Sodium (Colace) 100 mg Q12H PRN PO CONSTIPATION; Start 05/18/16 at 23: 30 Magnesium Hydroxide (Milk Of Mag) 30 ml DAILY PRN PO CONSTIPATION; Start at 23:30 Bisacodyl (Dulcolax) 5 mg DAILY PRN PO CONSTIPATION; Start 05/18/16 at 23:30 Miscellaneous Information 1 ea NOTE XX ; Start 05/19/16 at 02:00 Glucose (Glutose) 15 gm Q15M PRN PO DECREASED GLUCOSE; Start 05/19/16 at 02:00 Glucose (Glutose) 22.5 gm Q15M PRN PO DECREASED GLUCOSE; Start 05/19/16 at 02: 00 Dextrose (D50w Syringe) 25 ml Q15M PRN IV DECREASED GLUCOSE; Start 05/19/16 at 02:00 Dextrose (D50w Syringe) 50 ml Q15M PRN IV DECREASED GLUCOSE Last administered on 05/19/16 01:57; Admin Dose 50 ML; Start 05/19/16 at 02:00 Glucagon (Glucagen) 1 mg Q15M PRN IM DECREASED GLUCOSE; Start 05/19/16 at 02:00 Glucose (Glutose) 15 gm Q15M PRN BUCCAL DECREASED GLUCOSE Last administered on 05/19/16 02:19; Admin Dose 15 GM; Start 05/19/16 at 02:00 Diagnostic Test (Pha) (Accucheck) 1 ea 02 XX ; Start 05/20/16 at 02:00 Miscellaneous Information 1 ea NOTE XX ; Start 05/19/16 at 03:00 Glucose (Glutose) 15 gm Q15M PRN PO DECREASED GLUCOSE; Start 05/19/16 at 03:00 Glucose (Glutose) 22.5 gm Q15M PRN PO DECREASED GLUCOSE; Start 05/19/16 at 03: 00 Dextrose (D50w Syringe) 25 ml Q15M PRN IV DECREASED GLUCOSE; Start 05/19/16 at 03:00 Dextrose (D50w Syringe) 50 ml Q15M PRN IV DECREASED GLUCOSE; Start 05/19/16 at 03:00 Glucagon (Glucagen) 1 mg Q15M PRN IM DECREASED GLUCOSE; Start 05/19/16 at 03:00 Glucose 15 gm 15 gm Q15M PRN BUCCAL DECREASED GLUCOSE; Start 05/19/16 at 03:00 Dextrose/Sodium Chloride 1,000 ml @ 50 mls/hr Q20H IV Last administered on 05/21 00:20; Admin Dose 50 MLS/HR; Start 05/21/16 at 00:00 Metronidazole (Flagyl 500 Mg (Pmx)) 100 ml @ 100 mls/hr Q8 IVPB ; Start at 14:00 SUSHIL SIMEON May 21, 2016 11:22
--- NOTE | 2016-05-21 12:59 | RADRPT ---
Echocardiogram Report Patient Name: PIPE MCNAIR Gender: Female Date: 1955 Study Date: 21-May-2016 [employer] Clerk: Bubba Barron [facility] Location: 2[address] Ref. Physician: SUSHIL GIVENS Quality: Good Procedures: Transthoracic echocardiogram with complete 2D, M-Mode, and doppler examination. Indications: h/o mi. 2D/M Mode Doppler Measurement Value Normal Ranges Measurement Value Normal Ranges LVIDd 2D 4.4 3.5 - 5.6 cm AV Mean Robert 1.3 m/sec LVIDs 2D 2.5 2.1 - 4.1 cm AV Mean PG 8.0 mmHg FS 2D 42.8 % AV Peak Robert 2.1 m/sec LVPWd 2D 0.9 0.6 - 1.1 cm AV Peak PG 18.0 mmHg IVSd 2D 0.9 0.6 - 1.1 cm AV VTI 44.7 cm IVS/LVPW 2D 1.0 LVOT Mean Robert 0.7 m/sec AoR Diam 2D 2.4 2.0 - 3.7 cm LVOT Mean PG 2.0 mmHg LA/Ao 2D 2 0 - 1 LVOT Peak Robert 1.0 m/sec EDV 2D 86.4 cm3 LVOT Peak PG 4.0 mmHg ESV 2D 16.2 cm3 LVOT VTI 27.0 cm LA Dimen 2D 3.7 2.3 - 4.0 cm MV E Peak Robert 0.6 m/sec MV A Peak Robert 0.8 m/sec MV E/A 0.8 MV Decel Time 363 msec MV E/A 0.8 TR Peak Robert 2.5 m/sec TR Peak PG 24.0 mmHg RVSP 27.0 mmHg Findings Left Ventricle: Normal left ventricular systolic function. Normal left ventricular cavity size. Normal left ventricular wall thickness. Ejection fraction is visually estimated at 55 %. Tissue Doppler/Mitral Doppler indices are consistent with impaired relaxation (Stage I diastolic dysfunction). Right Ventricle: Normal right ventricular size. Normal right ventricular systolic function. Left Atrium: The left atrium is normal in size. Right Atrium: The right atrium is normal in size. Mitral Valve: Mitral valve leaflets appear mildly thickened. Mild mitral annular calcification. Mild mitral valve regurgitation. Aortic Valve: Aortic valve Max velocity 2.12 m/sec. Max PG 18.00 mmHg. Mean PG 8.00 mmHg. Aortic sclerosis without stenosis. Aortic cusps appear mildly calcified. Trace aortic valve regurgitation. Tricuspid Valve: Normal appearance of the tricuspid valve. Estimated peak PA systolic pressure 27 mmHg. There is trace tricuspid regurgitation. Pericardium: Trivial pericardial effusion. Aorta: Normal aortic root. IVC: Normal size and normal respiratory collapse consistent with normal right atrial pressure. Conclusions 1.Normal left ventricular systolic function. Normal left ventricular cavity size. Normal left ventricular wall thickness. Ejection fraction is visually estimated at 55 %. Tissue Doppler/Mitral Doppler indices are consistent with impaired relaxation (Stage I diastolic dysfunction). 2.Mitral valve leaflets appear mildly thickened. Mild mitral annular calcification. Mild mitral valve regurgitation. 3.Aortic valve Max velocity 2.12 m/sec. Max PG 18.00 mmHg. Mean PG 8.00 mmHg. Aortic sclerosis without stenosis. Aortic cusps appear mildly calcified. Trace aortic valve regurgitation. 4.Normal appearance of the tricuspid valve. Estimated peak PA systolic pressure 27 mmHg. There is trace tricuspid regurgitation. Electronically Signed By: Sushil Givens 21-May-2016 12:58:57 -0800 Patient Name: PIPE MCNAIR Study Date: 21-May-2016 [id number]
[2016-05-21] MEDS ORDERED: MIDAZOLAM 1 MG/ML 2 ML INJ ONE (13:04)
[2016-05-21] MEDS ORDERED: FENTAnyl 50 MCG/ML VIAL ONE (13:04)
[2016-05-21] MEDS ORDERED: PROPOFOL 20 ML ONE (13:04)
--- NOTE | 2016-05-21 14:07 | CONS ---
Date/Time of Note Date/Time of Note DATE: 05/21/16 TIME: 14:06 Assessment/Plan Assessment/Plan Additional Assessment/Plan IMPRESSION: 1. Anemia. 2. Rectal bleeding. 3. Diabetes mellitus. 4. Hypertension. 5. Status post coronary artery stent 6 to 7 months ago for myocardial infarction. 6.scleroderma Plan egd and colonoscopy cardiology clearance obtained this note is from yesterday Consultation Date/Type/Reason Admit Date/Time May 18, 2016 at 23:11 Initial Consult Date Type of Consultation: Cardiology Referring Provider: SAMMY XIAO MD 24 HR Interval Summary Constitutional: improved, no complaints Exam/Review of Systems Vital Signs Vitals Vital Signs Date Time Temp Pulse Resp B/P Pulse Ox O2 Delivery O2 Flow Rate FiO2 05/21/16 12:40 58 18 191/76 96 Room Air 05/21/16 07:46 97.5 Intake and Output 05/20/16 05/20/16 05/21/16 15:00 23:00 07:00 Intake Total 1540 ml 2750 ml Output Total 200 ml Balance 1340 ml 2750 ml Exam Constitutional: alert, oriented, well developed Psych: nl mood/affect, no complaints Head: atraumatic, normocephalic Eyes: EOMI, PERRL, nl conjunctiva, nl lids, nl sclera ENMT: nl external ears & nose, nl lips & teeth, nl nasal mucosa & septum Neck: non-tender, supple Respiratory: clear to auscultation, normal air movement Cardiovascular: nl pulses, regular rate and rhythm Gastrointestinal: nl liver, spleen, non-tender, soft Musculoskeletal: nl extremities to inspection, nl gait and stance Extremities: normal pulses Neurological: PASTRY MIXER II-XII intact, nl mental status, nl speech, nl strength Skin: nl turgor, No rash or lesions Lymph: nl lymph nodes Results Result Diagram: 05/21/16 0540 05/20/16 0517 Results 24 hrs Laboratory Tests Test 05/20/16 17:18 05/20/16 21:27 05/21/16 02:31 05/21/16 02:35 Bedside Glucose 95 71 88 Troponin I 0.051 Test 05/21/16 05:40 05/21/16 08:00 05/21/16 11:40 05/21/16 12:10 Basophils # 0.0 Basophils % 0.4 Blood Morphology Comment Cholesterol Level 131 Cholesterol/HDL Ratio 5.0 Eosinophils # 0.4 Eosinophils % 9.0 H HDL Cholesterol 26 L Hematocrit 36.9 L Hemoglobin 12.3 LDL Cholesterol, Calculated 53 Lymphocytes # 1.0 Lymphocytes % 20.2 Mean Corpuscular Hemoglobin 31.5 Mean Corpuscular Hemoglobin Concent 33.2 Mean Corpuscular Volume 94.9 Mean Platelet Volume 9.1 Monocytes # 0.5 Monocytes % 9.7 Neutrophils # 2.9 Neutrophils % 60.7 Nucleated Red Blood Cells # 0.0 Nucleated Red Blood Cells % 0.0 Platelet Count 186 Red Blood Count 3.89 L Red Cell Distribution Width 15.3 H Triglycerides Level 260 H Troponin I 0.053 0.055 White Blood Count 4.7 #L Bedside Glucose 80 80 Medications Medications Current Medications Aspirin (Aspirin) 81 mg DAILY PO Last administered on 05/20/16 08:57; Admin Dose 81 MG; Start 05/19/16 at 09:00 Carvedilol (Coreg) 6.25 mg BID PO Last administered on 05/20/16 21:22; Admin Dose 6.25 MG; Start 05/19/16 at 09:00 Clopidogrel Bisulfate (plaVIX) 75 mg DAILY PO Last administered on 05/20/16 08 :58; Admin Dose 75 MG; Start 05/19/16 at 09:00 Cyanocobalamin (Vitamin B12) 500 mcg DAILY PO Last administered on 05/20/16 08 :57; Admin Dose 500 MCG; Start 05/19/16 at 09:00 Docusate Sodium (Colace) 100 mg BID PO Last administered on 05/20/16 21:21; Admin Dose 100 MG; Start 05/19/16 at 09:00 Ferrous Sulfate (Ferrous Sulfate (Ec)) 325 mg TID PO Last administered on 21:21; Admin Dose 325 MG; Start 05/19/16 at 09:00 Furosemide (Lasix) 20 mg DAILY@06 PO Last administered on 05/21/16 05:51; Admin Dose 20 MG; Start 05/19/16 at 06:00 Gabapentin (Neurontin) 800 mg TID PO Last administered on 05/20/16 21:21; Admin Dose 800 MG; Start 05/19/16 at 09:00 Losartan Potassium (Cozaar) 25 mg DAILY PO Last administered on 05/20/16 08:58 ; Admin Dose 25 MG; Start 05/19/16 at 09:00 Nortriptyline HCl (Aventyl) 10 mg HS PO Last administered on 05/20/16 21:21; Admin Dose 10 MG; Start 05/19/16 at 21:00 Pantoprazole (Protonix Tab) 40 mg BID@06,18 PO Last administered on 05/21/16 05 :50; Admin Dose 40 MG; Start 05/19/16 at 06:00 Senna (Senokot) 1 tab BID PO Last administered on 05/20/16 21:21; Admin Dose 1 TAB; Start 05/19/16 at 09:00 Ondansetron HCl (Zofran Inj) 4 mg Q6H PRN IV NAUSEA AND/OR VOMITING; Start at 23:30 Acetaminophen (Tylenol Tab) 650 mg Q6H PRN PO PAIN LEVEL 1-3 OR FEVER Last administered on 05/20/16 01:55; Admin Dose 650 MG; Start 05/18/16 at 23:30 Docusate Sodium (Colace) 100 mg Q12H PRN PO CONSTIPATION; Start 05/18/16 at 23: 30 Magnesium Hydroxide (Milk Of Mag) 30 ml DAILY PRN PO CONSTIPATION; Start at 23:30 Bisacodyl (Dulcolax) 5 mg DAILY PRN PO CONSTIPATION; Start 05/18/16 at 23:30 Miscellaneous Information 1 ea NOTE XX ; Start 05/19/16 at 02:00 Glucose (Glutose) 15 gm Q15M PRN PO DECREASED GLUCOSE; Start 05/19/16 at 02:00 Glucose (Glutose) 22.5 gm Q15M PRN PO DECREASED GLUCOSE; Start 05/19/16 at 02: 00 Dextrose (D50w Syringe) 25 ml Q15M PRN IV DECREASED GLUCOSE; Start 05/19/16 at 02:00 Dextrose (D50w Syringe) 50 ml Q15M PRN IV DECREASED GLUCOSE Last administered on 05/19/16 01:57; Admin Dose 50 ML; Start 05/19/16 at 02:00 Glucagon (Glucagen) 1 mg Q15M PRN IM DECREASED GLUCOSE; Start 05/19/16 at 02:00 Glucose (Glutose) 15 gm Q15M PRN BUCCAL DECREASED GLUCOSE Last administered on 05/19/16 02:19; Admin Dose 15 GM; Start 05/19/16 at 02:00 Diagnostic Test (Pha) (Accucheck) 1 ea 02 XX ; Start 05/20/16 at 02:00 Miscellaneous Information 1 ea NOTE XX ; Start 05/19/16 at 03:00 Glucose (Glutose) 15 gm Q15M PRN PO DECREASED GLUCOSE; Start 05/19/16 at 03:00 Glucose (Glutose) 22.5 gm Q15M PRN PO DECREASED GLUCOSE; Start 05/19/16 at 03: 00 Dextrose (D50w Syringe) 25 ml Q15M PRN IV DECREASED GLUCOSE; Start 05/19/16 at 03:00 Dextrose (D50w Syringe) 50 ml Q15M PRN IV DECREASED GLUCOSE; Start 05/19/16 at 03:00 Glucagon (Glucagen) 1 mg Q15M PRN IM DECREASED GLUCOSE; Start 05/19/16 at 03:00 Glucose 15 gm 15 gm Q15M PRN BUCCAL DECREASED GLUCOSE; Start 05/19/16 at 03:00 Dextrose/Sodium Chloride 1,000 ml @ 50 mls/hr Q20H IV Last administered on 05/21 00:20; Admin Dose 50 MLS/HR; Start 05/21/16 at 00:00 Metronidazole (Flagyl 500 Mg (Pmx)) 100 ml @ 100 mls/hr Q8 IVPB ; Start at 14:00 ZARA DIOR MD May 21, 2016 14:07
[2016-05-21] MEDS: metroNIDAZOLE 500 MG/NS (PMX) 100 ML IVPB SCH ×2 (15:05→22:32)
[2016-05-21] MEDS: morphine 2 MG INJ IV PRN (19:52)
--- NOTE | 2016-05-21 20:07 | PN ---
Date/Time of Note Date/Time of Note DATE: 05/21/16 TIME: 20:07 Assessment/Plan VTE Prophylaxis VTE Prophylaxis Intervention: other Lines/Catheters IV C[facility]ter Type (from [facility]): Peripheral IV Urinary Cath still in place: No Assessment/Plan Chief Complaint/Hosp Course IMPRESSION: 1. Patient has gastrointestinal bleed.s/p egd 2. History of coronary artery disease, stent placement recently, hypertension 3. Anemia. 4. Hyponatremia. 5. Neutropenia. PLAN PER GI Problems: Subjective 24 Hr Interval Summary Cardiovascular: no complaints Gastrointestinal: no complaints Genitourinary: no complaints Exam/Review of Systems Vital Signs Vitals Vital Signs Date Time Temp Pulse Resp B/P Pulse Ox O2 Delivery O2 Flow Rate FiO2 05/21/16 14:22 60 15 158/64 95 Room Air 05/21/16 13:51 98.1 Intake and Output 05/20/16 05/20/16 05/21/16 15:00 23:00 07:00 Intake Total 1540 ml 2750 ml Output Total 200 ml Balance 1340 ml 2750 ml Exam Neck: supple Respiratory: clear to auscultation Cardiovascular: regular rate and rhythm Gastrointestinal: bowel sounds (+), soft Results Result Diagram: 05/21/16 0540 05/20/16 0517 Results 24 hrs Laboratory Tests Test 05/20/16 21:27 05/21/16 02:31 05/21/16 02:35 05/21/16 05:40 Bedside Glucose 71 88 Troponin I 0.051 0.053 Basophils # 0.0 Basophils % 0.4 Blood Morphology Comment Cholesterol Level 131 Cholesterol/HDL Ratio 5.0 Eosinophils # 0.4 Eosinophils % 9.0 H HDL Cholesterol 26 L Hematocrit 36.9 L Hemoglobin 12.3 LDL Cholesterol, Calculated 53 Lymphocytes # 1.0 Lymphocytes % 20.2 Mean Corpuscular Hemoglobin 31.5 Mean Corpuscular Hemoglobin Concent 33.2 Mean Corpuscular Volume 94.9 Mean Platelet Volume 9.1 Monocytes # 0.5 Monocytes % 9.7 Neutrophils # 2.9 Neutrophils % 60.7 Nucleated Red Blood Cells # 0.0 Nucleated Red Blood Cells % 0.0 Platelet Count 186 Red Blood Count 3.89 L Red Cell Distribution Width 15.3 H Triglycerides Level 260 H White Blood Count 4.7 #L Test 05/21/16 08:00 05/21/16 11:40 05/21/16 12:10 05/21/16 17:19 Bedside Glucose 80 80 86 Troponin I 0.055 Medications Medications Current Medications Aspirin (Aspirin) 81 mg DAILY PO Last administered on 05/20/16 08:57; Admin Dose 81 MG; Start 05/19/16 at 09:00 Carvedilol (Coreg) 6.25 mg BID PO Last administered on 05/20/16 21:22; Admin Dose 6.25 MG; Start 05/19/16 at 09:00 Clopidogrel Bisulfate (plaVIX) 75 mg DAILY PO Last administered on 05/20/16 08 :58; Admin Dose 75 MG; Start 05/19/16 at 09:00 Cyanocobalamin (Vitamin B12) 500 mcg DAILY PO Last administered on 05/20/16 08 :57; Admin Dose 500 MCG; Start 05/19/16 at 09:00 Docusate Sodium (Colace) 100 mg BID PO Last administered on 05/20/16 21:21; Admin Dose 100 MG; Start 05/19/16 at 09:00 Ferrous Sulfate (Ferrous Sulfate (Ec)) 325 mg TID PO Last administered on 21:21; Admin Dose 325 MG; Start 05/19/16 at 09:00 Furosemide (Lasix) 20 mg DAILY@06 PO Last administered on 05/21/16 05:51; Admin Dose 20 MG; Start 05/19/16 at 06:00 Gabapentin (Neurontin) 800 mg TID PO Last administered on 05/20/16 21:21; Admin Dose 800 MG; Start 05/19/16 at 09:00 Losartan Potassium (Cozaar) 25 mg DAILY PO Last administered on 05/20/16 08:58 ; Admin Dose 25 MG; Start 05/19/16 at 09:00 Nortriptyline HCl (Aventyl) 10 mg HS PO Last administered on 05/20/16 21:21; Admin Dose 10 MG; Start 05/19/16 at 21:00 Pantoprazole (Protonix Tab) 40 mg BID@06,18 PO Last administered on 05/21/16 17 :45; Admin Dose 40 MG; Start 05/19/16 at 06:00 Senna (Senokot) 1 tab BID PO Last administered on 05/20/16 21:21; Admin Dose 1 TAB; Start 05/19/16 at 09:00 Ondansetron HCl (Zofran Inj) 4 mg Q6H PRN IV NAUSEA AND/OR VOMITING; Start at 23:30 Acetaminophen (Tylenol Tab) 650 mg Q6H PRN PO PAIN LEVEL 1-3 OR FEVER Last administered on 05/20/16 01:55; Admin Dose 650 MG; Start 05/18/16 at 23:30 Docusate Sodium (Colace) 100 mg Q12H PRN PO CONSTIPATION; Start 05/18/16 at 23: 30 Magnesium Hydroxide (Milk Of Mag) 30 ml DAILY PRN PO CONSTIPATION; Start at 23:30 Bisacodyl (Dulcolax) 5 mg DAILY PRN PO CONSTIPATION; Start 05/18/16 at 23:30 Miscellaneous Information 1 ea NOTE XX ; Start 05/19/16 at 02:00 Glucose (Glutose) 15 gm Q15M PRN PO DECREASED GLUCOSE; Start 05/19/16 at 02:00 Glucose (Glutose) 22.5 gm Q15M PRN PO DECREASED GLUCOSE; Start 05/19/16 at 02: 00 Dextrose (D50w Syringe) 25 ml Q15M PRN IV DECREASED GLUCOSE; Start 05/19/16 at 02:00 Dextrose (D50w Syringe) 50 ml Q15M PRN IV DECREASED GLUCOSE Last administered on 05/19/16 01:57; Admin Dose 50 ML; Start 05/19/16 at 02:00 Glucagon (Glucagen) 1 mg Q15M PRN IM DECREASED GLUCOSE; Start 05/19/16 at 02:00 Glucose (Glutose) 15 gm Q15M PRN BUCCAL DECREASED GLUCOSE Last administered on 05/19/16 02:19; Admin Dose 15 GM; Start 05/19/16 at 02:00 Diagnostic Test (Pha) (Accucheck) 1 ea 02 XX ; Start 05/20/16 at 02:00 Miscellaneous Information 1 ea NOTE XX ; Start 05/19/16 at 03:00 Glucose (Glutose) 15 gm Q15M PRN PO DECREASED GLUCOSE; Start 05/19/16 at 03:00 Glucose (Glutose) 22.5 gm Q15M PRN PO DECREASED GLUCOSE; Start 05/19/16 at 03: 00 Dextrose (D50w Syringe) 25 ml Q15M PRN IV DECREASED GLUCOSE; Start 05/19/16 at 03:00 Dextrose (D50w Syringe) 50 ml Q15M PRN IV DECREASED GLUCOSE; Start 05/19/16 at 03:00 Glucagon (Glucagen) 1 mg Q15M PRN IM DECREASED GLUCOSE; Start 05/19/16 at 03:00 Glucose 15 gm 15 gm Q15M PRN BUCCAL DECREASED GLUCOSE; Start 05/19/16 at 03:00 Dextrose/Sodium Chloride 1,000 ml @ 50 mls/hr Q20H IV Last administered on 05/21 00:20; Admin Dose 50 MLS/HR; Start 05/21/16 at 00:00 Metronidazole (Flagyl 500 Mg (Pmx)) 100 ml @ 100 mls/hr Q8 IVPB Last administered on 05/21/16 15:05; Admin Dose 100 MLS/HR; Start 05/21/16 at 14:00 Morphine Sulfate (morphine) 2 mg Q4H PRN IV PAIN Last administered on 05/21/16 19:52; Admin Dose 2 MG; Start 05/21/16 at 20:00 SAMMY XIAO MD May 21, 2016 20:07
[2016-05-21] MEDS: NORTRIPTYLINE 10 MG CAP PO SCH (20:57)
--- NOTE | 2016-05-21 22:06 | GILP ---
DATE OF PROCEDURE: PROCEDURE PERFORMED: EGD with APC cauterization and colonoscopy. INDICATION: A 60-year-old female undergoing this procedure for GI bleeding and severe anemia. The purpose is to evaluate the upper GI and lower GI tract and find out the source of bleeding. INFORMED CONSENT: The risk of the procedure, related and unrelated complications, anesthetic risks, alternatives discussed and informed consent was obtained. DESCRIPTION OF PROCEDURE: The patient was brought to the GI lab, sedated by the anesthesiologist. After optimum sedation, scope was passed with much ease into esophagus which was grossly within norm al limits. Stomach mucosa revealed gastric ulcer and there was an AVM which was oozing. Duodenum f irst and second part appeared normal. Ampulla appeared normal. The AVM was successfully cauterized with APC until no bleeding was visible. Retroflexion in the stomach was normal. The scope was str aightened out and removed with good patient tolerance. IMPRESSION 1. Normal esophagus. 2. Z line at 40 cm. 3. Source of gastric ulcer, benign looking. 4. 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 5. Normal duodenum and ampulla. Plan is to continue PPI. COLONOSCOPY REPORT: The patient was turned around, scope was passed with much ease into rectum, adv anced through sigmoid, descending, transverse colon all the way into cecum. The patient's prep was poor. The solid stool was seen throughout the colon. There was a small AVM in the transverse colon , another one in the descending colon. No attempt was made to cauterize it because of poor prep. T he patient also had hemorrhoids. IMPRESSION: 1. Negative all the way into cecum. 2. Poor prep. 3. 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 4. Hemorrhoids. PLAN: The patient needs a capsule endoscopy to look for the AVM in the rest of the small intestine. If normal, then we can cauterize the AVM in the colon after totally cleaning the patient. The pat ient also needs on a regular basis because she had definitely element of melanosis coli. Dictated By: ZARA PASCUAL/KAROL Conf#: [id number] DID#: [id number] CC: SAMMY XIAO MD;*EndCC*
[2016-05-22] MEDS: morphine 2 MG INJ IV PRN (00:10)
[2016-05-22] MEDS: ACCUCHECK XX SCH (02:00)
[2016-05-22 06:09] LABS: BASOPHILS % 0.7 % (0.0-2.0); EOSINOPHILS # 0.4 10^3/ul (0.0-0.5); EOSINOPHILS % 11.7 % (0.0-7.0); HEMATOCRIT 29.1 % (37.0-47.0); HEMOGLOBIN 10.1 g/dl (12.0-16.0); LYMPHOCYTES # 0.8 10^3/ul (0.8-2.9); LYMPHOCYTES % 25.9 % (15.0-51.0); MEAN CORPUSCULAR HEMOGLOBIN 32.1 pg (29.0-33.0); MEAN CORPUSCULAR HGB CONC 34.7 g/dl (32.0-37.0); MEAN CORPUSCULAR VOLUME 92.6 fl (82.0-101.0); MEAN PLATELET VOLUME 8.9 fl (7.4-10.4); MONOCYTE # 0.4 10^3/ul (0.3-0.9); MONOCYTES % 12.7 % (0.0-11.0); NEUTROPHIL # 1.6 10^3/ul (1.6-7.5); PLATELET COUNT 170 10^3/UL (140-440); RED BLOOD COUNT 3.15 10^6/ul (4.20-5.40); RED CELL DISTRIBUTION WIDTH 14.4 % (11.5-14.5); UNCORRECTED WBC 3.2 10^3/ul (4.8-10.8); WHITE BLOOD COUNT 3.2 10^3/ul (4.8-10.8)
[2016-05-22] MEDS: PANTOPRAZOLE (EC) 40 MG TAB PO SCH ×2 (06:10→17:17)
[2016-05-22] MEDS: FUROSEMIDE 20 MG TAB PO SCH (06:10)
[2016-05-22] MEDS: metroNIDAZOLE 500 MG/NS (PMX) 100 ML IVPB SCH ×3 (06:10→21:03)
[2016-05-22] MEDS: ACETAMINOPHEN 325 MG TAB PO PRN (06:28)
[2016-05-22 07:05] LABS: CONDITION 1
[2016-05-22 07:41] VITALS: BP 134/58; RESP 18
[2016-05-22] MEDS: INSULIN ASPART [NOVOLOG] 3 ML PEN SC SCH ×4 (08:00→21:00)
[2016-05-22] MEDS: DOCUSATE SODIUM 100 MG CAP PO SCH ×2 (08:58→20:45)
[2016-05-22] MEDS: ASPIRIN 81 MG TAB PO SCH (08:58)
[2016-05-22] MEDS: LOSARTAN 25 MG TAB PO SCH (08:59)
[2016-05-22] MEDS: FERROUS SULFATE (EC) 325 MG TAB PO SCH ×3 (08:59→21:02)
[2016-05-22] MEDS: GABAPENTIN 400 MG CAP PO SCH ×3 (08:59→21:02)
[2016-05-22] MEDS: CLOPIDOGREL 75 MG TAB PO SCH (08:59)
[2016-05-22] MEDS: SENNA TAB PO SCH ×2 (09:00→20:45)
[2016-05-22] MEDS: CYANOCOBALAMIN 500 MCG TAB PO SCH (09:00)
--- NOTE | 2016-05-22 13:31 | CONS ---
Date/Time of Note Date/Time of Note DATE: 05/22/16 TIME: 13:28 Assessment/Plan Assessment/Plan Chief Complaint/Hosp Course IMPRESSION: 1. Abnormal electrocardiogram, assess for acute coronary syndrome.-trop negative x 3 2. History of percutaneous transluminal coronary angioplasty and stent placement, assess management of antiplatelet agents in setting of gastrointestinal bleed. 3. Hypertension, under reasonable control. 4. History of dyslipidemia. 5. Anemia-follow hgb closely 6. Gastrointestinal bleed s/p Endoscopy with findings of hemm/AV malformation 7. Generalized weakness likely secondary to anemia. 8. Diabetes mellitus. 9. Leukopenia. Recc: -Pnding endoscopy today -Continue asa/plavix as tolerated only as has been almost 1 year since PTCA/ stent placement 07/03 -Continue losartan/coreg -follow Hgb closely Problems: Consultation Date/Type/Reason Admit Date/Time May 18, 2016 at 23:11 Initial Consult Date 05/20/2015 Type of Consultation: Cardiology Reason for Consultation abnl ecg Referring Provider: SAMMY XIAO MD Exam/Review of Systems Vital Signs Vitals Vital Signs Date Time Temp Pulse Resp B/P Pulse Ox O2 Delivery O2 Flow Rate FiO2 05/22/16 07:41 97.4 62 18 134/58 97 05/21/16 14:22 Room Air Intake and Output 05/21/16 05/21/16 05/22/16 15:00 23:00 07:00 Intake Total 350 ml 1045 ml 1000 ml Output Total 1000 ml Balance 350 ml 45 ml 1000 ml Exam Review of Systems: CONSTITUTIONAL: No fevers, chills. PULMONARY: No sob CARDIOVASCULAR: No chest pain/palpitations GASTROINTESTINAL: No nausea/vomiting. GENITOURINARY: No hematuria/dysuria. MUSCULOSKELETAL: No myagias/arthalgias. PSYCHIATRIC: The patient denies depression. NEUROLOGIC: No weakness Constitutional: alert, oriented Psych: no complaints Head: normocephalic ENMT: mucosa pink and moist Neck: jvd (9 cm water), supple Respiratory: diminished breath sounds Cardiovascular: regular rate and rhythm Gastrointestinal: non-tender, soft Musculoskeletal: muscle tone (normal) Extremities: edema (none) Neurological: other Results Result Diagram: 05/22/16 0545 05/20/16 0517 Results 24 hrs Laboratory Tests Test 05/21/16 17:19 05/21/16 20:56 05/22/16 05:45 05/22/16 08:02 Bedside Glucose 86 145 90 Basophils # 0.0 Basophils % 0.7 Eosinophils # 0.4 Eosinophils % 11.7 H Hematocrit 29.1 #L Hemoglobin 10.1 L Lymphocytes # 0.8 Lymphocytes % 25.9 Mean Corpuscular Hemoglobin 32.1 Mean Corpuscular Hemoglobin Concent 34.7 Mean Corpuscular Volume 92.6 Mean Platelet Volume 8.9 Monocytes # 0.4 Monocytes % 12.7 H Neutrophils # 1.6 Neutrophils % 49.0 Nucleated Red Blood Cells # 0.0 Nucleated Red Blood Cells % 0.0 Platelet Count 170 Red Blood Count 3.15 L Red Cell Distribution Width 14.4 White Blood Count 3.2 #L Test 05/22/16 11:51 Bedside Glucose 102 Medications Medications Current Medications Aspirin (Aspirin) 81 mg DAILY PO Last administered on 05/22/16 08:58; Admin Dose 81 MG; Start 05/19/16 at 09:00 Carvedilol (Coreg) 6.25 mg BID PO Last administered on 05/21/16 20:57; Admin Dose 6.25 MG; Start 05/19/16 at 09:00 Clopidogrel Bisulfate (plaVIX) 75 mg DAILY PO Last administered on 05/22/16 08: 59; Admin Dose 75 MG; Start 05/19/16 at 09:00 Cyanocobalamin (Vitamin B12) 500 mcg DAILY PO Last administered on 05/22/16 09: 00; Admin Dose 500 MCG; Start 05/19/16 at 09:00 Docusate Sodium (Colace) 100 mg BID PO Last administered on 05/22/16 08:58; Admin Dose 100 MG; Start 05/19/16 at 09:00 Ferrous Sulfate (Ferrous Sulfate (Ec)) 325 mg TID PO Last administered on 13:13; Admin Dose 325 MG; Start 05/19/16 at 09:00 Furosemide (Lasix) 20 mg DAILY@06 PO Last administered on 05/22/16 06:10; Admin Dose 20 MG; Start 05/19/16 at 06:00 Gabapentin (Neurontin) 800 mg TID PO Last administered on 05/22/16 13:13; Admin Dose 800 MG; Start 05/19/16 at 09:00 Losartan Potassium (Cozaar) 25 mg DAILY PO Last administered on 05/22/16 08:59 ; Admin Dose 25 MG; Start 05/19/16 at 09:00 Nortriptyline HCl (Aventyl) 10 mg HS PO Last administered on 05/21/16 20:57; Admin Dose 10 MG; Start 05/19/16 at 21:00 Pantoprazole (Protonix Tab) 40 mg BID@06,18 PO Last administered on 05/22/16 06 :10; Admin Dose 40 MG; Start 05/19/16 at 06:00 Senna (Senokot) 1 tab BID PO Last administered on 05/22/16 09:00; Admin Dose 1 TAB; Start 05/19/16 at 09:00 Ondansetron HCl (Zofran Inj) 4 mg Q6H PRN IV NAUSEA AND/OR VOMITING; Start at 23:30 Acetaminophen (Tylenol Tab) 650 mg Q6H PRN PO PAIN LEVEL 1-3 OR FEVER Last administered on 05/22/16 06:28; Admin Dose 650 MG; Start 05/18/16 at 23:30 Docusate Sodium (Colace) 100 mg Q12H PRN PO CONSTIPATION; Start 05/18/16 at 23: 30 Magnesium Hydroxide (Milk Of Mag) 30 ml DAILY PRN PO CONSTIPATION; Start at 23:30 Bisacodyl (Dulcolax) 5 mg DAILY PRN PO CONSTIPATION; Start 05/18/16 at 23:30 Miscellaneous Information 1 ea NOTE XX ; Start 05/19/16 at 02:00 Glucose (Glutose) 15 gm Q15M PRN PO DECREASED GLUCOSE; Start 05/19/16 at 02:00 Glucose (Glutose) 22.5 gm Q15M PRN PO DECREASED GLUCOSE; Start 05/19/16 at 02: 00 Dextrose (D50w Syringe) 25 ml Q15M PRN IV DECREASED GLUCOSE; Start 05/19/16 at 02:00 Dextrose (D50w Syringe) 50 ml Q15M PRN IV DECREASED GLUCOSE Last administered on 05/19/16 01:57; Admin Dose 50 ML; Start 05/19/16 at 02:00 Glucagon (Glucagen) 1 mg Q15M PRN IM DECREASED GLUCOSE; Start 05/19/16 at 02:00 Glucose (Glutose) 15 gm Q15M PRN BUCCAL DECREASED GLUCOSE Last administered on 05/19/16 02:19; Admin Dose 15 GM; Start 05/19/16 at 02:00 Diagnostic Test (Pha) (Accucheck) 1 ea 02 XX ; Start 05/20/16 at 02:00 Miscellaneous Information 1 ea NOTE XX ; Start 05/19/16 at 03:00 Glucose (Glutose) 15 gm Q15M PRN PO DECREASED GLUCOSE; Start 05/19/16 at 03:00 Glucose (Glutose) 22.5 gm Q15M PRN PO DECREASED GLUCOSE; Start 05/19/16 at 03: 00 Dextrose (D50w Syringe) 25 ml Q15M PRN IV DECREASED GLUCOSE; Start 05/19/16 at 03:00 Dextrose (D50w Syringe) 50 ml Q15M PRN IV DECREASED GLUCOSE; Start 05/19/16 at 03:00 Glucagon (Glucagen) 1 mg Q15M PRN IM DECREASED GLUCOSE; Start 05/19/16 at 03:00 Glucose 15 gm 15 gm Q15M PRN BUCCAL DECREASED GLUCOSE; Start 05/19/16 at 03:00 Metronidazole (Flagyl 500 Mg (Pmx)) 100 ml @ 100 mls/hr Q8 IVPB Last administered on 05/22/16 13:13; Admin Dose 100 MLS/HR; Start 05/21/16 at 14:00 Morphine Sulfate (morphine) 2 mg Q4H PRN IV PAIN Last administered on 05/22/16 00:10; Admin Dose 2 MG; Start 05/21/16 at 20:00 SUSHIL SIMEON May 22, 2016 13:31
--- NOTE | 2016-05-22 18:25 | PDOCDIS ---
Discharge Instructions CONDITION Patient Condition: Good HOME CARE INSTRUCTIONS: Diet Instructions: Reduced SodiumSpecial Diet: FULL LIQUID ACTIVITY: Activity Restrictions: Slowly Increase Activity FOLLOW UP/APPOINTMENTS Appointments f/u own pcp [address] mayen [address] baer 1 wk SAMMY XIAO MD May 22, 2016 18:25
[2016-05-22] MEDS ORDERED: PANT40TA3 PO (18:27)
[2016-05-22] MEDS ORDERED: METR500T PO (18:27)
--- NOTE | 2016-05-22 18:37 | PN ---
Date/Time of Note Date/Time of Note DATE: 05/22/16 TIME: 18:29 Assessment/Plan VTE Prophylaxis VTE Prophylaxis Intervention: other Lines/Catheters [facility] Peripheral IV Urinary Cath still in place: No Assessment/Plan Chief Complaint/Hosp Course IMPRESSION: 1. Patient has gastrointestinal bleed.s/p egd 2. History of coronary artery disease, stent placement recently, hypertension 3. Anemia. 4. Hyponatremia. 5. Neutropenia. 6 hx scleroderma 7 s/p egd PLAN home soon Problems: Subjective 24 Hr Interval Summary Cardiovascular: other (weakness), No chest pain Exam/Review of Systems Vital Signs Vitals Vital Signs Date Time Temp Pulse Resp B/P Pulse Ox O2 Delivery O2 Flow Rate FiO2 05/22/16 07:41 97.4 62 18 134/58 97 05/21/16 14:22 Room Air Intake and Output 05/21/16 05/21/16 05/22/16 15:00 23:00 07:00 Intake Total 350 ml 1045 ml 1000 ml Output Total 1000 ml Balance 350 ml 45 ml 1000 ml Exam Neck: supple Respiratory: clear to auscultation Cardiovascular: regular rate and rhythm Gastrointestinal: soft Musculoskeletal: nl extremities to inspection Extremities: normal pulses Neurological: OPERATIONS INSPECTOR II-XII intact Results Result Diagram: 05/22/16 0545 05/20/16 0517 Results 24 hrs Laboratory Tests Test 05/21/16 20:56 05/22/16 05:45 05/22/16 08:02 05/22/16 11:51 Bedside Glucose 145 90 102 Basophils # 0.0 Basophils % 0.7 Eosinophils # 0.4 Eosinophils % 11.7 H Hematocrit 29.1 #L Hemoglobin 10.1 L Lymphocytes # 0.8 Lymphocytes % 25.9 Mean Corpuscular Hemoglobin 32.1 Mean Corpuscular Hemoglobin Concent 34.7 Mean Corpuscular Volume 92.6 Mean Platelet Volume 8.9 Monocytes # 0.4 Monocytes % 12.7 H Neutrophils # 1.6 Neutrophils % 49.0 Nucleated Red Blood Cells # 0.0 Nucleated Red Blood Cells % 0.0 Platelet Count 170 Red Blood Count 3.15 L Red Cell Distribution Width 14.4 White Blood Count 3.2 #L Test 05/22/16 17:14 Bedside Glucose 138 Medications Medications Current Medications Aspirin (Aspirin) 81 mg DAILY PO Last administered on 05/22/16 08:58; Admin Dose 81 MG; Start 05/19/16 at 09:00 Carvedilol (Coreg) 6.25 mg BID PO Last administered on 05/21/16 20:57; Admin Dose 6.25 MG; Start 05/19/16 at 09:00 Clopidogrel Bisulfate (plaVIX) 75 mg DAILY PO Last administered on 05/22/16 08: 59; Admin Dose 75 MG; Start 05/19/16 at 09:00 Cyanocobalamin (Vitamin B12) 500 mcg DAILY PO Last administered on 05/22/16 09: 00; Admin Dose 500 MCG; Start 05/19/16 at 09:00 Docusate Sodium (Colace) 100 mg BID PO Last administered on 05/22/16 08:58; Admin Dose 100 MG; Start 05/19/16 at 09:00 Ferrous Sulfate (Ferrous Sulfate (Ec)) 325 mg TID PO Last administered on 13:13; Admin Dose 325 MG; Start 05/19/16 at 09:00 Furosemide (Lasix) 20 mg DAILY@06 PO Last administered on 05/22/16 06:10; Admin Dose 20 MG; Start 05/19/16 at 06:00 Gabapentin (Neurontin) 800 mg TID PO Last administered on 05/22/16 13:13; Admin Dose 800 MG; Start 05/19/16 at 09:00 Losartan Potassium (Cozaar) 25 mg DAILY PO Last administered on 05/22/16 08:59 ; Admin Dose 25 MG; Start 05/19/16 at 09:00 Nortriptyline HCl (Aventyl) 10 mg HS PO Last administered on 05/21/16 20:57; Admin Dose 10 MG; Start 05/19/16 at 21:00 Pantoprazole (Protonix Tab) 40 mg BID@06,18 PO Last administered on 05/22/16 17 :17; Admin Dose 40 MG; Start 05/19/16 at 06:00 Senna (Senokot) 1 tab BID PO Last administered on 05/22/16 09:00; Admin Dose 1 TAB; Start 05/19/16 at 09:00 Ondansetron HCl (Zofran Inj) 4 mg Q6H PRN IV NAUSEA AND/OR VOMITING; Start at 23:30 Acetaminophen (Tylenol Tab) 650 mg Q6H PRN PO PAIN LEVEL 1-3 OR FEVER Last administered on 05/22/16 06:28; Admin Dose 650 MG; Start 05/18/16 at 23:30 Docusate Sodium (Colace) 100 mg Q12H PRN PO CONSTIPATION; Start 05/18/16 at 23: 30 Magnesium Hydroxide (Milk Of Mag) 30 ml DAILY PRN PO CONSTIPATION; Start at 23:30 Bisacodyl (Dulcolax) 5 mg DAILY PRN PO CONSTIPATION; Start 05/18/16 at 23:30 Miscellaneous Information 1 ea NOTE XX ; Start 05/19/16 at 02:00 Glucose (Glutose) 15 gm Q15M PRN PO DECREASED GLUCOSE; Start 05/19/16 at 02:00 Glucose (Glutose) 22.5 gm Q15M PRN PO DECREASED GLUCOSE; Start 05/19/16 at 02: 00 Dextrose (D50w Syringe) 25 ml Q15M PRN IV DECREASED GLUCOSE; Start 05/19/16 at 02:00 Dextrose (D50w Syringe) 50 ml Q15M PRN IV DECREASED GLUCOSE Last administered on 05/19/16 01:57; Admin Dose 50 ML; Start 05/19/16 at 02:00 Glucagon (Glucagen) 1 mg Q15M PRN IM DECREASED GLUCOSE; Start 05/19/16 at 02:00 Glucose (Glutose) 15 gm Q15M PRN BUCCAL DECREASED GLUCOSE Last administered on 05/19/16 02:19; Admin Dose 15 GM; Start 05/19/16 at 02:00 Diagnostic Test (Pha) (Accucheck) 1 ea 02 XX ; Start 05/20/16 at 02:00 Miscellaneous Information 1 ea NOTE XX ; Start 05/19/16 at 03:00 Glucose (Glutose) 15 gm Q15M PRN PO DECREASED GLUCOSE; Start 05/19/16 at 03:00 Glucose (Glutose) 22.5 gm Q15M PRN PO DECREASED GLUCOSE; Start 05/19/16 at 03: 00 Dextrose (D50w Syringe) 25 ml Q15M PRN IV DECREASED GLUCOSE; Start 05/19/16 at 03:00 Dextrose (D50w Syringe) 50 ml Q15M PRN IV DECREASED GLUCOSE; Start 05/19/16 at 03:00 Glucagon (Glucagen) 1 mg Q15M PRN IM DECREASED GLUCOSE; Start 05/19/16 at 03:00 Glucose 15 gm 15 gm Q15M PRN BUCCAL DECREASED GLUCOSE; Start 05/19/16 at 03:00 Metronidazole (Flagyl 500 Mg (Pmx)) 100 ml @ 100 mls/hr Q8 IVPB Last administered on 05/22/16 13:13; Admin Dose 100 MLS/HR; Start 05/21/16 at 14:00 Morphine Sulfate (morphine) 2 mg Q4H PRN IV PAIN Last administered on 05/22/16 00:10; Admin Dose 2 MG; Start 05/21/16 at 20:00 SAMMY XIAO MD May 22, 2016 18:37
[2016-05-22 20:19] VITALS: BP 142/65; RESP 16
--- NOTE | 2016-05-22 20:56 | CONS ---
Date/Time of Note Date/Time of Note DATE: 05/22/16 TIME: 20:55 Assessment/Plan Assessment/Plan Additional Assessment/Plan IMPRESSION: 1. Anemia. 2. Rectal bleeding. 3. Diabetes mellitus. 4. Hypertension. 5. Status post coronary artery stent 6 to 7 months ago for myocardial infarction. 6.scleroderma Plan egd and colonoscopy cardiology clearance obtained pt evaluation,pt still weak,cannot walk to bathroom Consultation Date/Type/Reason Admit Date/Time May 18, 2016 at 23:11 Type of Consultation: Cardiology Referring Provider: SAMMY XIAO MD 24 HR Interval Summary Constitutional: no complaints Exam/Review of Systems Vital Signs Vitals Vital Signs Date Time Temp Pulse Resp B/P Pulse Ox O2 Delivery O2 Flow Rate FiO2 05/22/16 20:19 98.2 59 16 142/65 97 05/21/16 14:22 Room Air Intake and Output 05/21/16 05/21/16 05/22/16 15:00 23:00 07:00 Intake Total 350 ml 1045 ml 1000 ml Output Total 1000 ml Balance 350 ml 45 ml 1000 ml Exam Constitutional: alert, oriented, well developed Psych: nl mood/affect, no complaints Head: atraumatic, normocephalic Eyes: EOMI, PERRL, nl conjunctiva, nl lids, nl sclera ENMT: nl external ears & nose, nl lips & teeth, nl nasal mucosa & septum Neck: non-tender, supple Respiratory: clear to auscultation, normal air movement Cardiovascular: nl pulses, regular rate and rhythm Gastrointestinal: nl liver, spleen, non-tender, soft Musculoskeletal: nl extremities to inspection, nl gait and stance Extremities: normal pulses Neurological: PROGRAM DEVELOPER II-XII intact, nl mental status, nl speech, nl strength Skin: nl turgor, No rash or lesions Lymph: nl lymph nodes Results Result Diagram: 05/22/16 0545 05/20/16 0517 Results 24 hrs Laboratory Tests Test 05/21/16 20:56 05/22/16 05:45 05/22/16 08:02 05/22/16 11:51 Bedside Glucose 145 90 102 Basophils # 0.0 Basophils % 0.7 Eosinophils # 0.4 Eosinophils % 11.7 H Hematocrit 29.1 #L Hemoglobin 10.1 L Lymphocytes # 0.8 Lymphocytes % 25.9 Mean Corpuscular Hemoglobin 32.1 Mean Corpuscular Hemoglobin Concent 34.7 Mean Corpuscular Volume 92.6 Mean Platelet Volume 8.9 Monocytes # 0.4 Monocytes % 12.7 H Neutrophils # 1.6 Neutrophils % 49.0 Nucleated Red Blood Cells # 0.0 Nucleated Red Blood Cells % 0.0 Platelet Count 170 Red Blood Count 3.15 L Red Cell Distribution Width 14.4 White Blood Count 3.2 #L Test 05/22/16 17:14 Bedside Glucose 138 Medications Medications Current Medications Aspirin (Aspirin) 81 mg DAILY PO Last administered on 05/22/16 08:58; Admin Dose 81 MG; Start 05/19/16 at 09:00 Carvedilol (Coreg) 6.25 mg BID PO Last administered on 05/21/16 20:57; Admin Dose 6.25 MG; Start 05/19/16 at 09:00 Clopidogrel Bisulfate (plaVIX) 75 mg DAILY PO Last administered on 05/22/16 08: 59; Admin Dose 75 MG; Start 05/19/16 at 09:00 Cyanocobalamin (Vitamin B12) 500 mcg DAILY PO Last administered on 05/22/16 09: 00; Admin Dose 500 MCG; Start 05/19/16 at 09:00 Docusate Sodium (Colace) 100 mg BID PO Last administered on 05/22/16 08:58; Admin Dose 100 MG; Start 05/19/16 at 09:00 Ferrous Sulfate (Ferrous Sulfate (Ec)) 325 mg TID PO Last administered on 13:13; Admin Dose 325 MG; Start 05/19/16 at 09:00 Furosemide (Lasix) 20 mg DAILY@06 PO Last administered on 05/22/16 06:10; Admin Dose 20 MG; Start 05/19/16 at 06:00 Gabapentin (Neurontin) 800 mg TID PO Last administered on 05/22/16 13:13; Admin Dose 800 MG; Start 05/19/16 at 09:00 Losartan Potassium (Cozaar) 25 mg DAILY PO Last administered on 05/22/16 08:59 ; Admin Dose 25 MG; Start 05/19/16 at 09:00 Nortriptyline HCl (Aventyl) 10 mg HS PO Last administered on 05/21/16 20:57; Admin Dose 10 MG; Start 05/19/16 at 21:00 Pantoprazole (Protonix Tab) 40 mg BID@06,18 PO Last administered on 05/22/16 17 :17; Admin Dose 40 MG; Start 05/19/16 at 06:00 Senna (Senokot) 1 tab BID PO Last administered on 05/22/16 09:00; Admin Dose 1 TAB; Start 05/19/16 at 09:00 Ondansetron HCl (Zofran Inj) 4 mg Q6H PRN IV NAUSEA AND/OR VOMITING; Start at 23:30 Acetaminophen (Tylenol Tab) 650 mg Q6H PRN PO PAIN LEVEL 1-3 OR FEVER Last administered on 05/22/16 06:28; Admin Dose 650 MG; Start 05/18/16 at 23:30 Docusate Sodium (Colace) 100 mg Q12H PRN PO CONSTIPATION; Start 05/18/16 at 23: 30 Magnesium Hydroxide (Milk Of Mag) 30 ml DAILY PRN PO CONSTIPATION; Start at 23:30 Bisacodyl (Dulcolax) 5 mg DAILY PRN PO CONSTIPATION; Start 05/18/16 at 23:30 Miscellaneous Information 1 ea NOTE XX ; Start 05/19/16 at 02:00 Glucose (Glutose) 15 gm Q15M PRN PO DECREASED GLUCOSE; Start 05/19/16 at 02:00 Glucose (Glutose) 22.5 gm Q15M PRN PO DECREASED GLUCOSE; Start 05/19/16 at 02: 00 Dextrose (D50w Syringe) 25 ml Q15M PRN IV DECREASED GLUCOSE; Start 05/19/16 at 02:00 Dextrose (D50w Syringe) 50 ml Q15M PRN IV DECREASED GLUCOSE Last administered on 05/19/16 01:57; Admin Dose 50 ML; Start 05/19/16 at 02:00 Glucagon (Glucagen) 1 mg Q15M PRN IM DECREASED GLUCOSE; Start 05/19/16 at 02:00 Glucose (Glutose) 15 gm Q15M PRN BUCCAL DECREASED GLUCOSE Last administered on 05/19/16 02:19; Admin Dose 15 GM; Start 05/19/16 at 02:00 Diagnostic Test (Pha) (Accucheck) 1 ea 02 XX ; Start 05/20/16 at 02:00 Miscellaneous Information 1 ea NOTE XX ; Start 05/19/16 at 03:00 Glucose (Glutose) 15 gm Q15M PRN PO DECREASED GLUCOSE; Start 05/19/16 at 03:00 Glucose (Glutose) 22.5 gm Q15M PRN PO DECREASED GLUCOSE; Start 05/19/16 at 03: 00 Dextrose (D50w Syringe) 25 ml Q15M PRN IV DECREASED GLUCOSE; Start 05/19/16 at 03:00 Dextrose (D50w Syringe) 50 ml Q15M PRN IV DECREASED GLUCOSE; Start 05/19/16 at 03:00 Glucagon (Glucagen) 1 mg Q15M PRN IM DECREASED GLUCOSE; Start 05/19/16 at 03:00 Glucose 15 gm 15 gm Q15M PRN BUCCAL DECREASED GLUCOSE; Start 05/19/16 at 03:00 Metronidazole (Flagyl 500 Mg (Pmx)) 100 ml @ 100 mls/hr Q8 IVPB Last administered on 05/22/16 13:13; Admin Dose 100 MLS/HR; Start 05/21/16 at 14:00 Morphine Sulfate (morphine) 2 mg Q4H PRN IV PAIN Last administered on 05/22/16 00:10; Admin Dose 2 MG; Start 05/21/16 at 20:00 ZARA DIOR MD May 22, 2016 20:56
[2016-05-22] MEDS: NORTRIPTYLINE 10 MG CAP PO SCH (21:02)
[2016-05-23] MEDS: ACCUCHECK XX SCH (01:05)
[2016-05-23] MEDS: metroNIDAZOLE 500 MG/NS (PMX) 100 ML IVPB SCH ×2 (05:23→14:33)
[2016-05-23] MEDS: PANTOPRAZOLE (EC) 40 MG TAB PO SCH ×2 (05:23→17:17)
[2016-05-23] MEDS: FUROSEMIDE 20 MG TAB PO SCH (05:23)
[2016-05-23] MEDS: INSULIN ASPART [NOVOLOG] 3 ML PEN SC SCH ×3 (08:00→17:21)
[2016-05-23 08:07] VITALS: BP 127/58; RESP 16
[2016-05-23] MEDS: CLOPIDOGREL 75 MG TAB PO SCH (09:01)
[2016-05-23] MEDS: FERROUS SULFATE (EC) 325 MG TAB PO SCH ×2 (09:01→12:21)
[2016-05-23] MEDS: CYANOCOBALAMIN 500 MCG TAB PO SCH (09:01)
[2016-05-23] MEDS: DOCUSATE SODIUM 100 MG CAP PO SCH (09:01)
[2016-05-23] MEDS: SENNA TAB PO SCH (09:01)
[2016-05-23] MEDS: LOSARTAN 25 MG TAB PO SCH (09:01)
[2016-05-23] MEDS: ASPIRIN 81 MG TAB PO SCH (09:02)
[2016-05-23] MEDS: GABAPENTIN 400 MG CAP PO SCH ×2 (09:02→12:20)
--- NOTE | 2016-05-23 13:21 | CONS ---
Date/Time of Note Date/Time of Note DATE: 05/23/16 TIME: 13:20 Assessment/Plan Assessment/Plan Chief Complaint/Hosp Course IMPRESSION: 1. Abnormal electrocardiogram, assess for acute coronary syndrome.-trop negative x 3 2. History of percutaneous transluminal coronary angioplasty and stent placement, assess management of antiplatelet agents in setting of gastrointestinal bleed. 3. Hypertension, under reasonable control. 4. History of dyslipidemia. 5. Anemia-follow hgb closely 6. Gastrointestinal bleed s/p Endoscopy with findings of hemm/AV malformation 7. Generalized weakness likely secondary to anemia. 8. Diabetes mellitus. 9. Leukopenia. Recc: -Continue asa/plavix as tolerated only as has been almost 1 year since PTCA/ stent placement 07/03 -Continue losartan/coreg -follow Hgb closely -Ambulation Problems: Consultation Date/Type/Reason Admit Date/Time May 18, 2016 at 23:11 Initial Consult Date 05/20/2015 Type of Consultation: Cardiology Reason for Consultation h/o ptca/stent/pre-op Referring Provider: SAMMY XIAO MD Exam/Review of Systems Vital Signs Vitals Vital Signs Date Time Temp Pulse Resp B/P Pulse Ox O2 Delivery O2 Flow Rate FiO2 05/23/16 08:07 98.1 63 16 127/58 96 05/21/16 14:22 Room Air Intake and Output 05/22/16 05/22/16 05/23/16 15:00 23:00 07:00 Intake Total 1550 ml 860 ml Balance 1550 ml 860 ml Exam Review of Systems: CONSTITUTIONAL: No fevers, chills. PULMONARY: No sob CARDIOVASCULAR: No chest pain/palpitations GASTROINTESTINAL: No nausea/vomiting. GENITOURINARY: No hematuria/dysuria. MUSCULOSKELETAL: No myagias/arthalgias. PSYCHIATRIC: The patient denies depression. NEUROLOGIC: No weakness Constitutional: alert, oriented Psych: no complaints Head: normocephalic ENMT: mucosa pink and moist Neck: jvd (9 cm water), supple Respiratory: clear to auscultation Cardiovascular: regular rate and rhythm Gastrointestinal: non-tender, soft Musculoskeletal: muscle tone (normal) Extremities: edema (none) Neurological: other (No focal deficits) Results Result Diagram: 05/22/16 0545 05/20/16 0517 Results 24 hrs Laboratory Tests Test 05/22/16 17:14 05/22/16 20:57 05/23/16 08:56 05/23/16 12:19 Bedside Glucose 138 142 86 132 Medications Medications Current Medications Aspirin (Aspirin) 81 mg DAILY PO Last administered on 05/23/16 09:02; Admin Dose 81 MG; Start 05/19/16 at 09:00 Carvedilol (Coreg) 6.25 mg BID PO Last administered on 05/23/16 09:02; Admin Dose 6.25 MG; Start 05/19/16 at 09:00 Clopidogrel Bisulfate (plaVIX) 75 mg DAILY PO Last administered on 05/23/16 09: 01; Admin Dose 75 MG; Start 05/19/16 at 09:00 Cyanocobalamin (Vitamin B12) 500 mcg DAILY PO Last administered on 05/23/16 09: 01; Admin Dose 500 MCG; Start 05/19/16 at 09:00 Docusate Sodium (Colace) 100 mg BID PO Last administered on 05/23/16 09:01; Admin Dose 100 MG; Start 05/19/16 at 09:00 Ferrous Sulfate (Ferrous Sulfate (Ec)) 325 mg TID PO Last administered on 12:21; Admin Dose 325 MG; Start 05/19/16 at 09:00 Furosemide (Lasix) 20 mg DAILY@06 PO Last administered on 05/23/16 05:23; Admin Dose 20 MG; Start 05/19/16 at 06:00 Gabapentin (Neurontin) 800 mg TID PO Last administered on 05/23/16 12:20; Admin Dose 800 MG; Start 05/19/16 at 09:00 Losartan Potassium (Cozaar) 25 mg DAILY PO Last administered on 05/23/16 09:01 ; Admin Dose 25 MG; Start 05/19/16 at 09:00 Nortriptyline HCl (Aventyl) 10 mg HS PO Last administered on 05/22/16 21:02; Admin Dose 10 MG; Start 05/19/16 at 21:00 Pantoprazole (Protonix Tab) 40 mg BID@06,18 PO Last administered on 05/23/16 05 :23; Admin Dose 40 MG; Start 05/19/16 at 06:00 Senna (Senokot) 1 tab BID PO Last administered on 2/3/17at 09:01; Admin Dose 1 TAB; Start 05/19/16 at 09:00 Ondansetron HCl (Zofran Inj) 4 mg Q6H PRN IV NAUSEA AND/OR VOMITING; Start at 23:30 Acetaminophen (Tylenol Tab) 650 mg Q6H PRN PO PAIN LEVEL 1-3 OR FEVER Last administered on 05/22/16 06:28; Admin Dose 650 MG; Start 05/18/16 at 23:30 Docusate Sodium (Colace) 100 mg Q12H PRN PO CONSTIPATION; Start 05/18/16 at 23: 30 Magnesium Hydroxide (Milk Of Mag) 30 ml DAILY PRN PO CONSTIPATION; Start at 23:30 Bisacodyl (Dulcolax) 5 mg DAILY PRN PO CONSTIPATION; Start 05/18/16 at 23:30 Miscellaneous Information 1 ea NOTE XX ; Start 05/19/16 at 02:00 Glucose (Glutose) 15 gm Q15M PRN PO DECREASED GLUCOSE; Start 05/19/16 at 02:00 Glucose (Glutose) 22.5 gm Q15M PRN PO DECREASED GLUCOSE; Start 05/19/16 at 02: 00 Dextrose (D50w Syringe) 25 ml Q15M PRN IV DECREASED GLUCOSE; Start 05/19/16 at 02:00 Dextrose (D50w Syringe) 50 ml Q15M PRN IV DECREASED GLUCOSE Last administered on 05/19/16 01:57; Admin Dose 50 ML; Start 05/19/16 at 02:00 Glucagon (Glucagen) 1 mg Q15M PRN IM DECREASED GLUCOSE; Start 05/19/16 at 02:00 Glucose (Glutose) 15 gm Q15M PRN BUCCAL DECREASED GLUCOSE Last administered on 05/19/16 02:19; Admin Dose 15 GM; Start 05/19/16 at 02:00 Diagnostic Test (Pha) (Accucheck) 1 ea 02 XX ; Start 05/20/16 at 02:00 Miscellaneous Information 1 ea NOTE XX ; Start 05/19/16 at 03:00 Glucose (Glutose) 15 gm Q15M PRN PO DECREASED GLUCOSE; Start 05/19/16 at 03:00 Glucose (Glutose) 22.5 gm Q15M PRN PO DECREASED GLUCOSE; Start 05/19/16 at 03: 00 Dextrose (D50w Syringe) 25 ml Q15M PRN IV DECREASED GLUCOSE; Start 05/19/16 at 03:00 Dextrose (D50w Syringe) 50 ml Q15M PRN IV DECREASED GLUCOSE; Start 05/19/16 at 03:00 Glucagon (Glucagen) 1 mg Q15M PRN IM DECREASED GLUCOSE; Start 05/19/16 at 03:00 Glucose 15 gm 15 gm Q15M PRN BUCCAL DECREASED GLUCOSE; Start 05/19/16 at 03:00 Metronidazole (Flagyl 500 Mg (Pmx)) 100 ml @ 100 mls/hr Q8 IVPB Last administered on 05/23/16 05:23; Admin Dose 100 MLS/HR; Start 05/21/16 at 14:00 Morphine Sulfate (morphine) 2 mg Q4H PRN IV PAIN Last administered on 05/22/16 00:10; Admin Dose 2 MG; Start 05/21/16 at 20:00 SUSHIL SIMEON May 23, 2016 13:21
--- NOTE | 2016-05-23 16:57 | PN ---
Date/Time of Note Date/Time of Note DATE: 05/23/16 TIME: 16:56 Assessment/Plan VTE Prophylaxis VTE Prophylaxis Intervention: other Lines/Catheters IV C[facility]ter Type (from [facility]): Peripheral IV Urinary Cath still in place: No Assessment/Plan Chief Complaint/Hosp Course IMPRESSION: 1. Patient has gastrointestinal bleed.s/p egd 2. History of coronary artery disease, stent placement recently, hypertension 3. Anemia. 4. Hyponatremia. 5. Neutropenia. 6 hx scleroderma 7 s/p egd 8 CAD PLAN home Problems: Subjective 24 Hr Interval Summary Cardiovascular: no complaints Gastrointestinal: no complaints Exam/Review of Systems Vital Signs Vitals Vital Signs Date Time Temp Pulse Resp B/P Pulse Ox O2 Delivery O2 Flow Rate FiO2 05/23/16 08:07 98.1 63 16 127/58 96 05/21/16 14:22 Room Air Intake and Output 05/22/16 05/22/16 05/23/16 15:00 23:00 07:00 Intake Total 1550 ml 860 ml Balance 1550 ml 860 ml Exam Cardiovascular: regular rate and rhythm Gastrointestinal: soft Musculoskeletal: nl extremities to inspection Results Result Diagram: 05/22/16 0545 05/20/16 0517 Results 24 hrs Laboratory Tests Test 05/22/16 17:14 05/22/16 20:57 05/23/16 08:56 05/23/16 12:19 Bedside Glucose 138 142 86 132 Medications Medications Current Medications Aspirin (Aspirin) 81 mg DAILY PO Last administered on 05/23/16 09:02; Admin Dose 81 MG; Start 05/19/16 at 09:00 Carvedilol (Coreg) 6.25 mg BID PO Last administered on 05/23/16 09:02; Admin Dose 6.25 MG; Start 05/19/16 at 09:00 Clopidogrel Bisulfate (plaVIX) 75 mg DAILY PO Last administered on 05/23/16 09: 01; Admin Dose 75 MG; Start 05/19/16 at 09:00 Cyanocobalamin (Vitamin B12) 500 mcg DAILY PO Last administered on 05/23/16 09: 01; Admin Dose 500 MCG; Start 05/19/16 at 09:00 Docusate Sodium (Colace) 100 mg BID PO Last administered on 05/23/16 09:01; Admin Dose 100 MG; Start 05/19/16 at 09:00 Ferrous Sulfate (Ferrous Sulfate (Ec)) 325 mg TID PO Last administered on 12:21; Admin Dose 325 MG; Start 05/19/16 at 09:00 Furosemide (Lasix) 20 mg DAILY@06 PO Last administered on 05/23/16 05:23; Admin Dose 20 MG; Start 05/19/16 at 06:00 Gabapentin (Neurontin) 800 mg TID PO Last administered on 05/23/16 12:20; Admin Dose 800 MG; Start 05/19/16 at 09:00 Losartan Potassium (Cozaar) 25 mg DAILY PO Last administered on 05/23/16 09:01 ; Admin Dose 25 MG; Start 05/19/16 at 09:00 Nortriptyline HCl (Aventyl) 10 mg HS PO Last administered on 05/22/16 21:02; Admin Dose 10 MG; Start 05/19/16 at 21:00 Pantoprazole (Protonix Tab) 40 mg BID@06,18 PO Last administered on 05/23/16 05 :23; Admin Dose 40 MG; Start 05/19/16 at 06:00 Senna (Senokot) 1 tab BID PO Last administered on 05/23/16 09:01; Admin Dose 1 TAB; Start 05/19/16 at 09:00 Ondansetron HCl (Zofran Inj) 4 mg Q6H PRN IV NAUSEA AND/OR VOMITING; Start at 23:30 Acetaminophen (Tylenol Tab) 650 mg Q6H PRN PO PAIN LEVEL 1-3 OR FEVER Last administered on 05/22/16 06:28; Admin Dose 650 MG; Start 05/18/16 at 23:30 Docusate Sodium (Colace) 100 mg Q12H PRN PO CONSTIPATION; Start 05/18/16 at 23: 30 Magnesium Hydroxide (Milk Of Mag) 30 ml DAILY PRN PO CONSTIPATION; Start at 23:30 Bisacodyl (Dulcolax) 5 mg DAILY PRN PO CONSTIPATION; Start 05/18/16 at 23:30 Miscellaneous Information 1 ea NOTE XX ; Start 05/19/16 at 02:00 Glucose (Glutose) 15 gm Q15M PRN PO DECREASED GLUCOSE; Start 05/19/16 at 02:00 Glucose (Glutose) 22.5 gm Q15M PRN PO DECREASED GLUCOSE; Start 05/19/16 at 02: 00 Dextrose (D50w Syringe) 25 ml Q15M PRN IV DECREASED GLUCOSE; Start 05/19/16 at 02:00 Dextrose (D50w Syringe) 50 ml Q15M PRN IV DECREASED GLUCOSE Last administered on 05/19/16 01:57; Admin Dose 50 ML; Start 05/19/16 at 02:00 Glucagon (Glucagen) 1 mg Q15M PRN IM DECREASED GLUCOSE; Start 05/19/16 at 02:00 Glucose (Glutose) 15 gm Q15M PRN BUCCAL DECREASED GLUCOSE Last administered on 05/19/16 02:19; Admin Dose 15 GM; Start 05/19/16 at 02:00 Diagnostic Test (Pha) (Accucheck) 1 ea 02 XX ; Start 05/20/16 at 02:00 Miscellaneous Information 1 ea NOTE XX ; Start 05/19/16 at 03:00 Glucose (Glutose) 15 gm Q15M PRN PO DECREASED GLUCOSE; Start 05/19/16 at 03:00 Glucose (Glutose) 22.5 gm Q15M PRN PO DECREASED GLUCOSE; Start 05/19/16 at 03: 00 Dextrose (D50w Syringe) 25 ml Q15M PRN IV DECREASED GLUCOSE; Start 05/19/16 at 03:00 Dextrose (D50w Syringe) 50 ml Q15M PRN IV DECREASED GLUCOSE; Start 05/19/16 at 03:00 Glucagon (Glucagen) 1 mg Q15M PRN IM DECREASED GLUCOSE; Start 05/19/16 at 03:00 Glucose 15 gm 15 gm Q15M PRN BUCCAL DECREASED GLUCOSE; Start 05/19/16 at 03:00 Metronidazole (Flagyl 500 Mg (Pmx)) 100 ml @ 100 mls/hr Q8 IVPB Last administered on 05/23/16 14:33; Admin Dose 100 MLS/HR; Start 05/21/16 at 14:00 Morphine Sulfate (morphine) 2 mg Q4H PRN IV PAIN Last administered on 05/22/16 00:10; Admin Dose 2 MG; Start 05/21/16 at 20:00 SAMMY XIAO MD May 23, 2016 16:57
--- NOTE | 2016-05-23 20:30 | CONS ---
Date/Time of Note Date/Time of Note DATE: 05/23/16 TIME: 20:29 Assessment/Plan Assessment/Plan Additional Assessment/Plan Additional Assessment/Plan IMPRESSION: 1. Anemia. 2. Rectal bleeding. 3. Diabetes mellitus. 4. Hypertension. 5. Status post coronary artery stent 6 to 7 months ago for myocardial infarction. 6.scleroderma Plan egd and colonoscopy cardiology clearance obtained pt evaluation,pt still weak,cannot walk to bathroom capsule endoscopy as op Consultation Date/Type/Reason Admit Date/Time May 18, 2016 at 23:11 Type of Consultation: Cardiology Referring Provider: SAMMY XIAO MD 24 HR Interval Summary Constitutional: improved, no complaints Exam/Review of Systems Vital Signs Vitals Vital Signs Date Time Temp Pulse Resp B/P Pulse Ox O2 Delivery O2 Flow Rate FiO2 05/23/16 08:07 98.1 63 16 127/58 96 05/21/16 14:22 Room Air Intake and Output 05/22/16 05/22/16 05/23/16 15:00 23:00 07:00 Intake Total 1550 ml 860 ml Balance 1550 ml 860 ml Exam Constitutional: alert, oriented, well developed Psych: nl mood/affect, no complaints Head: atraumatic, normocephalic Eyes: EOMI, PERRL, nl conjunctiva, nl lids, nl sclera ENMT: nl external ears & nose, nl lips & teeth, nl nasal mucosa & septum Neck: non-tender, supple Respiratory: clear to auscultation, normal air movement Cardiovascular: nl pulses, regular rate and rhythm Gastrointestinal: nl liver, spleen, non-tender, soft Musculoskeletal: nl extremities to inspection, nl gait and stance Extremities: normal pulses Neurological: STAFFING DIRECTOR II-XII intact, nl mental status, nl speech, nl strength Skin: nl turgor, No rash or lesions Lymph: nl lymph nodes Results Result Diagram: 05/22/16 0545 05/20/16 0517 Results 24 hrs Laboratory Tests Test 05/22/16 20:57 05/23/16 08:56 05/23/16 12:19 05/23/16 17:20 Bedside Glucose 142 86 132 99 Medications Medications Current Medications Aspirin (Aspirin) 81 mg DAILY PO Last administered on 05/23/16t 09:02; Admin Dose 81 MG; Start 05/19/16 at 09:00 Carvedilol (Coreg) 6.25 mg BID PO Last administered on 05/23/16 09:02; Admin Dose 6.25 MG; Start 05/19/16 at 09:00 Clopidogrel Bisulfate (plaVIX) 75 mg DAILY PO Last administered on 05/23/16 09: 01; Admin Dose 75 MG; Start 05/19/16 at 09:00 Cyanocobalamin (Vitamin B12) 500 mcg DAILY PO Last administered on 05/23/16 09: 01; Admin Dose 500 MCG; Start 05/19/16 at 09:00 Docusate Sodium (Colace) 100 mg BID PO Last administered on 05/23/16 09:01; Admin Dose 100 MG; Start 05/19/16 at 09:00 Ferrous Sulfate (Ferrous Sulfate (Ec)) 325 mg TID PO Last administered on 12:21; Admin Dose 325 MG; Start 05/19/16 at 09:00 Furosemide (Lasix) 20 mg DAILY@06 PO Last administered on 05/23/16 05:23; Admin Dose 20 MG; Start 05/19/16 at 06:00 Gabapentin (Neurontin) 800 mg TID PO Last administered on 05/23/16 12:20; Admin Dose 800 MG; Start 05/19/16 at 09:00 Losartan Potassium (Cozaar) 25 mg DAILY PO Last administered on 05/23/16 09:01 ; Admin Dose 25 MG; Start 05/19/16 at 09:00 Nortriptyline HCl (Aventyl) 10 mg HS PO Last administered on 05/22/16 21:02; Admin Dose 10 MG; Start 05/19/16 at 21:00 Pantoprazole (Protonix Tab) 40 mg BID@06,18 PO Last administered on 05/23/16 17 :17; Admin Dose 40 MG; Start 05/19/16 at 06:00 Senna (Senokot) 1 tab BID PO Last administered on 05/23/16 09:01; Admin Dose 1 TAB; Start 05/19/16 at 09:00 Ondansetron HCl (Zofran Inj) 4 mg Q6H PRN IV NAUSEA AND/OR VOMITING; Start at 23:30 Acetaminophen (Tylenol Tab) 650 mg Q6H PRN PO PAIN LEVEL 1-3 OR FEVER Last administered on 05/22/16 06:28; Admin Dose 650 MG; Start 05/18/16 at 23:30 Docusate Sodium (Colace) 100 mg Q12H PRN PO CONSTIPATION; Start 05/18/16 at 23: 30 Magnesium Hydroxide (Milk Of Mag) 30 ml DAILY PRN PO CONSTIPATION; Start at 23:30 Bisacodyl (Dulcolax) 5 mg DAILY PRN PO CONSTIPATION; Start 05/18/16 at 23:30 Miscellaneous Information 1 ea NOTE XX ; Start 05/19/16 at 02:00 Glucose (Glutose) 15 gm Q15M PRN PO DECREASED GLUCOSE; Start 05/19/16 at 02:00 Glucose (Glutose) 22.5 gm Q15M PRN PO DECREASED GLUCOSE; Start 05/19/16 at 02: 00 Dextrose (D50w Syringe) 25 ml Q15M PRN IV DECREASED GLUCOSE; Start 05/19/16 at 02:00 Dextrose (D50w Syringe) 50 ml Q15M PRN IV DECREASED GLUCOSE Last administered on 05/19/16 01:57; Admin Dose 50 ML; Start 05/19/16 at 02:00 Glucagon (Glucagen) 1 mg Q15M PRN IM DECREASED GLUCOSE; Start 05/19/16 at 02:00 Glucose (Glutose) 15 gm Q15M PRN BUCCAL DECREASED GLUCOSE Last administered on 05/19/16 02:19; Admin Dose 15 GM; Start 05/19/16 at 02:00 Diagnostic Test (Pha) (Accucheck) 1 ea 02 XX ; Start 05/20/16 at 02:00 Miscellaneous Information 1 ea NOTE XX ; Start 05/19/16 at 03:00 Glucose (Glutose) 15 gm Q15M PRN PO DECREASED GLUCOSE; Start 05/19/16 at 03:00 Glucose (Glutose) 22.5 gm Q15M PRN PO DECREASED GLUCOSE; Start 05/19/16 at 03: 00 Dextrose (D50w Syringe) 25 ml Q15M PRN IV DECREASED GLUCOSE; Start 05/19/16 at 03:00 Dextrose (D50w Syringe) 50 ml Q15M PRN IV DECREASED GLUCOSE; Start 05/19/16 at 03:00 Glucagon (Glucagen) 1 mg Q15M PRN IM DECREASED GLUCOSE; Start 1/30/17 at 03:00 Glucose 15 gm 15 gm Q15M PRN BUCCAL DECREASED GLUCOSE; Start 05/19/16 at 03:00 Metronidazole (Flagyl 500 Mg (Pmx)) 100 ml @ 100 mls/hr Q8 IVPB Last administered on 05/23/16 14:33; Admin Dose 100 MLS/HR; Start 05/21/16 at 14:00 Morphine Sulfate (morphine) 2 mg Q4H PRN IV PAIN Last administered on 05/22/16 00:10; Admin Dose 2 MG; Start 05/21/16 at 20:00 ZARA DIOR MD May 23, 2016 20:29
--- NOTE | 2016-05-28 21:20 | QN ---
Documentation Comment [id number] SAMMY XIAO MD May 28, 2016 21:20
--- NOTE | 2016-05-29 07:49 | DS ---
DATE OF ADMISSION: 05/18/2016 DATE OF DISCHARGE: 05/23/2016 HISTORY OF PRESENT ILLNESS: The patient was admitted with symptomatic anemia. She was seen by dr mayen in consultation. The patient had abnormal ECG. Dr. Givens saw this patient. troponins where negative. The patient underwent EGD which shows patient has gastritis. The patient was noted to have no GI bleed. EGD shows normal esophagus. Z-line is 40 cm . 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 The patient was cleared by the telecommunications consultant to be discharged home. DISCHARGE DIAGNOSES: 1. Gastroesophageal reflux disease. 2. Gastrointestinal bleed, status post EGD . 3. Coronary artery disease 4. dyspepsia. 5. Hypertension. 6. Anemia. 7. ppi_. 8. Neutropenia. 9. History of scleroderma The patient will continue on Protonix. put patient on antibiotic. The patient to continue Protonix, aspirin, Colace, Cialis , docusate sodium. Continue gabapentin . Dictated By: SAMMY XIAO MD BS/KAROL Conf#: [id number] DID#: [id number]
== END 2016-05-23 20:49 | disposition home or self-care (01) | DRG 378 ==
LOC: E/R 16:40 → PP2 23:11
PROVIDERS: ADMIT Internal Medicine Nephrology; ATTEND Internal Medicine Nephrology
PROC: 30233N1 Transfusion of Nonautologous Red Blood Cells into Peripheral Vein, Percutaneous Approach (ICD-10-PCS; 2016-05-19)
PROC: 0W3P8ZZ Control Bleeding in Gastrointestinal Tract, Via Natural or Artificial Opening Endoscopic (ICD-10-PCS; principal; 2016-05-21 12:30)
PROC: 0DJD8ZZ Inspection of Lower Intestinal Tract, Via Natural or Artificial Opening Endoscopic (ICD-10-PCS; 2016-05-21 12:30)
DX: K31.811 Angiodysplasia of stomach and duodenum with bleeding (principal); E87.1 Hypo-osmolality and hyponatremia; M34.9 Systemic sclerosis, unspecified; D70.9 Neutropenia, unspecified; D64.9 Anemia, unspecified; I10 Essential (primary) hypertension; E11.9 Type 2 diabetes mellitus without complications; K25.9 Gastric ulcer, unspecified as acute or chronic, without hemorrhage or perforation; K62.5 Hemorrhage of anus and rectum; I25.10 Atherosclerotic heart disease of native coronary artery without angina pectoris; K64.9 Unspecified hemorrhoids; K55.20 Angiodysplasia of colon without hemorrhage; K21.9 Gastro-esophageal reflux disease without esophagitis; R10.13 Epigastric pain; I25.2 Old myocardial infarction; Z79.4 Long term (current) use of insulin; Z79.02 Long term (current) use of antithrombotics/antiplatelets; Z79.899 Other long term (current) drug therapy; Z95.5 Presence of coronary angioplasty implant and graft
CPT/HCPCS: 36415; 36430; 74176; 80053; 80061; 81001; 81003; 82962; 83605; 83690; 84484; 85014; 85018; 85025; 86850; 86900; 86901; 86920; 87075; 93005; 93306; 96374; 96375; 97162; 97166; J1815; J2250; J2270; J2405; J3010; J7030; J7040; J7042; P9016